=== PATIENT | female | born 1990 | race African-American/Black ===

== ENCOUNTER 2019-05-02 18:34 | Inpatient (IN) | payer MEDICARE, MEDICAID ==
[~2019-05-02] VITALS: Ht 157.5 cm; Wt 60.0 kg
[2019-05-02] MEDS ORDERED: LEVO75 PO (19:38)
[2019-05-02] MEDS ORDERED: METO50 PO (19:38)
[2019-05-02] MEDS ORDERED: BUME1TAB34 PO (19:38)
[2019-05-02] MEDS ORDERED: MYCO500T PO (19:38)
[2019-05-02] MEDS ORDERED: AMLO10TA7 PO (19:38)
[2019-05-02] MEDS ORDERED: CLON0.3T PO (19:38)
[2019-05-02] MEDS ORDERED: PANT40TA25 PO (19:38)
[2019-05-02] MEDS ORDERED: GABA-531 PO (19:38)
[2019-05-02] MEDS ORDERED: HYDR200T83 PO (19:38)
[2019-05-02] MEDS ORDERED: DiphenhydrAMINE HCL 50 MG/ML VIAL IVP STA (20:00)
[2019-05-02] MEDS ORDERED: METOCLOPRAMIDE HCL 5 MG/ML 2 ML VIAL IVP ONE (20:00)
[2019-05-02] MEDS ORDERED: KETOROLAC TROMETHAMINE 30 MG/ML VIAL IVP ONE (20:00)
[2019-05-02 20:54] LABS: ANION GAP 13 mmol/L (8-16); CALCIUM, TOTAL 9.2 mg/dL (8.8-10.5); CARBON DIOXIDE 25 mmol/L (22-29); CHLORIDE 97 mmol/L (98-107); CREATININE 11.65 mg/dL (0.60-1.30); GLOMERULAR FILTR. RATE CALC 4 mL/min (>60); GLUCOSE,RANDOM 85 mg/dL (70-110); POTASSIUM 4.3 mmol/L (3.5-5.1); SODIUM SERUM 135 mmol/L (136-145); UREA NITROGEN, BLOOD 45 mg/dL (7-18)
[2019-05-02 21:03] LABS: LACTIC ACID 1.1 mmol/L (0.4-2.0)
[2019-05-02 21:05] LABS: ALANINE AMINOTRANSFERASE 14 U/L (12-78); ALBUMIN 3.4 g/dL (3.4-5.0); ALKALINE PHOSPHATASE 263 U/L (46-116); ASPARTATE AMINOTRANSFERASE 12 U/L (15-37); BILIRUBIN,TOTAL 0.4 mg/dL (0.1-1.0); HCG,QUANTITATIVE < 1 mIU/mL (0-6); LIPASE 864 U/L (73-393); TOTAL PROTEIN, SERUM 7.5 g/dL (6.4-8.2)
[2019-05-02 21:09] LABS: BASOPHILS % (AUTO) 1.4 % (0.0-2.0); EOSINOPHILS % (AUTO) 1.4 % (1.0-6.0); HEMATOCRIT 29.9 % (36-46); HEMOGLOBIN 9.3 g/dL (12.0-16.0); LYMPHOCYTES # (AUTO) 1.8 K/uL (1.0-4.8); LYMPHOCYTES % (AUTO) 20.2 % (22.0-44.0); MEAN CORPUSCULAR HEMOGLOBIN 27.3 pg (26.0-34.0); MEAN CORPUSCULAR HGB CONC 31.1 G/dL (31.0-37.0); MEAN CORPUSCULAR VOLUME 88 fL (80-100); MONOCYTES # (AUTO) 1.1 K/uL (0.1-1.0); MONOCYTES % (AUTO) 11.9 % (2.0-9.0); NEUTROPHILS # (AUTO) 5.8 K/uL (1.8-7.7); NEUTROPHILS % (AUTO) 65.1 % (40.0-70.0); PLATELET COUNT (AUTO) 272 K/uL (150-450); RED BLOOD CELL COUNT(AUTO) 3.41 MIL/uL (4.00-5.20); RED CELL DISTRIBUTION WIDTH 18.6 % (11.5-14.5)
[2019-05-02] MEDS ORDERED: MORPHINE SULFATE 4 MG/ML SYRINGE IVP ONE (22:30)
[2019-05-02] MEDS ORDERED: BISACODYL 10 MG RECTAL RECTAL SUPPOSITORY PR PRN (22:30)
[2019-05-02] MEDS ORDERED: ZOLPIDEM TARTRATE 5 MG TABLET PO PRN (22:30)
[2019-05-02] MEDS ORDERED: ACETAMINOPHEN 325 MG TABLET PO PRN ×2 (22:30)
[2019-05-02] MEDS ORDERED: MAGNESIUM HYDROXIDE SUSPENSION 30 ML UDCUP PO PRN (22:30)
[2019-05-02] MEDS ORDERED: ONDANSETRON HCL 4 MG/2 ML VIAL IVP PRN (22:30)
[2019-05-02] MEDS ORDERED: 0.9% SODIUM CHLORIDE 10 ML SYRINGE IVP PRN (22:30)
[2019-05-03] VITALS (7 sets, daily range): BP systolic 116–154; BP diastolic 69–99
[2019-05-03] MEDS: HEPARIN SODIUM,PORCINE 5,000 UNITS/ML VIAL SQ SCH ×4 (00:30→23:19)
[2019-05-03] MEDS: MORPHINE SULFATE 2 MG/ML SYRINGE IVP PRN ×4 (04:40→23:19)
[2019-05-03] MEDS: HYDROCODONE/ACETAMINOPHEN 5-325 MG TABLET PO PRN (06:06)
[2019-05-03] MEDS: LEVOTHYROXINE SODIUM 75 MCG TABLET PO SCH (06:28)
[2019-05-03] MEDS: MYCOPHENOLATE MOFETIL 250 MG CAPSULE PO SCH ×2 (06:28→19:46)
[2019-05-03 06:36] LABS: BASOPHILS % (AUTO) 0.6 % (0.0-2.0); EOSINOPHILS % (AUTO) 2.4 % (1.0-6.0); HEMATOCRIT 26.1 % (36-46); HEMOGLOBIN 8.2 g/dL (12.0-16.0); LYMPHOCYTES # (AUTO) 2.2 K/uL (1.0-4.8); LYMPHOCYTES % (AUTO) 27.5 % (22.0-44.0); MEAN CORPUSCULAR HEMOGLOBIN 27.7 pg (26.0-34.0); MEAN CORPUSCULAR HGB CONC 31.3 G/dL (31.0-37.0); MEAN CORPUSCULAR VOLUME 89 fL (80-100); MONOCYTES % (AUTO) 12.9 % (2.0-9.0); NEUTROPHILS # (AUTO) 4.5 K/uL (1.8-7.7); NEUTROPHILS % (AUTO) 56.6 % (40.0-70.0); PLATELET COUNT (AUTO) 287 K/uL (150-450); RED BLOOD CELL COUNT(AUTO) 2.95 MIL/uL (4.00-5.20); RED CELL DISTRIBUTION WIDTH 18.9 % (11.5-14.5)
[2019-05-03 07:04] LABS: CREATININE 12.21 mg/dL (0.60-1.30); POTASSIUM 4.3 mmol/L (3.5-5.1)
[2019-05-03] MEDS: GABAPENTIN 300 MG CAPSULE PO SCH ×3 (08:07→19:46)
[2019-05-03] MEDS: HYDROXYCHLOROQUINE SULFATE 200 MG TABLET PO SCH ×2 (08:07→19:45)
[2019-05-03] MEDS: PANTOPRAZOLE SODIUM 40 MG DR TABLET PO SCH (08:08)
[2019-05-03] MEDS: AmLODIPine BESYLATE 10 MG TABLET PO SCH (08:08)
[2019-05-03] MEDS: METOPROLOL TARTRATE 50 MG TABLET PO SCH ×2 (08:08→23:19)
[2019-05-03] MEDS: BUMETANIDE 1 MG TABLET PO SCH ×3 (08:08→19:46)
[2019-05-03] MEDS: DOCUSATE SODIUM 100 MG CAPSULE PO SCH ×2 (08:09→19:45)
[2019-05-03] MEDS ORDERED: DiphenhydrAMINE HCL 50 MG/ML VIAL IM ONE (13:59)
[2019-05-03] MEDS ORDERED: LIDOCAINE/PF 1% 2 ML VIAL IM ONE (13:59)
[2019-05-03] MEDS ORDERED: SODIUM CHLORIDE 0.9% 1,000 ML ONE ×2 (15:33)
[2019-05-03] MEDS: ONDANSETRON HCL 4 MG/2 ML VIAL IVP PRN (23:26)
[2019-05-04] MEDS: HYDROCODONE/ACETAMINOPHEN 5-325 MG TABLET PO PRN ×2 (02:28→06:29)
[2019-05-04] MEDS: MORPHINE SULFATE 2 MG/ML SYRINGE IVP PRN ×3 (03:59→12:24)
[2019-05-04 05:28] VITALS: BP 127/71
[2019-05-04] MEDS: LEVOTHYROXINE SODIUM 75 MCG TABLET PO SCH (06:29)
[2019-05-04] MEDS: ONDANSETRON HCL 4 MG/2 ML VIAL IVP PRN (06:29)
[2019-05-04] MEDS: MYCOPHENOLATE MOFETIL 250 MG CAPSULE PO SCH (06:29)
[2019-05-04 07:11] LABS: BASOPHILS % (AUTO) 0.9 % (0.0-2.0); EOSINOPHILS % (AUTO) 5.6 % (1.0-6.0); HEMATOCRIT 25.7 % (36-46); HEMOGLOBIN 8.3 g/dL (12.0-16.0); LYMPHOCYTES # (AUTO) 1.8 K/uL (1.0-4.8); LYMPHOCYTES % (AUTO) 29.7 % (22.0-44.0); MEAN CORPUSCULAR HEMOGLOBIN 28.3 pg (26.0-34.0); MEAN CORPUSCULAR HGB CONC 32.1 G/dL (31.0-37.0); MEAN CORPUSCULAR VOLUME 88 fL (80-100); MONOCYTES # (AUTO) 0.6 K/uL (0.1-1.0); MONOCYTES % (AUTO) 10.7 % (2.0-9.0); NEUTROPHILS # (AUTO) 3.2 K/uL (1.8-7.7); NEUTROPHILS % (AUTO) 53.1 % (40.0-70.0); PLATELET COUNT (AUTO) 271 K/uL (150-450); RED BLOOD CELL COUNT(AUTO) 2.92 MIL/uL (4.00-5.20)
[2019-05-04 07:36] VITALS: BP 120/74
[2019-05-04 08:01] LABS: ALBUMIN 2.9 g/dL (3.4-5.0); BILIRUBIN,TOTAL 0.3 mg/dL (0.1-1.0); CALCIUM, TOTAL 9.3 mg/dL (8.8-10.5); CHOL/HDL RATIO 2.7 (3.9-5.7); CREATININE 7.16 mg/dL (0.60-1.30); PHOSPHORUS 5.6 mg/dL (2.5-4.9); POTASSIUM 4.5 mmol/L (3.5-5.1)
[2019-05-04 08:03] LABS: % IRON SATURATION 24.8 % (22-44)
[2019-05-04] MEDS: HYDROXYCHLOROQUINE SULFATE 200 MG TABLET PO SCH (08:09)
[2019-05-04] MEDS: AmLODIPine BESYLATE 10 MG TABLET PO SCH (08:10)
[2019-05-04] MEDS: METOPROLOL TARTRATE 50 MG TABLET PO SCH (08:10)
[2019-05-04] MEDS: DOCUSATE SODIUM 100 MG CAPSULE PO SCH (08:10)
[2019-05-04] MEDS: GABAPENTIN 300 MG CAPSULE PO SCH (08:10)
[2019-05-04] MEDS: BUMETANIDE 1 MG TABLET PO SCH (08:11)
[2019-05-04] MEDS: HEPARIN SODIUM,PORCINE 5,000 UNITS/ML VIAL SQ SCH (08:11)
[2019-05-04] MEDS: PANTOPRAZOLE SODIUM 40 MG DR TABLET PO SCH (08:14)
[2019-05-04] MEDS ORDERED: LIPA1CAP8 PO (11:11)
[2019-05-04] MEDS ORDERED: SEVE800T17 PO (11:11)
[2019-05-04] MEDS ORDERED: TRAM50TA4 PO (11:13)
[2019-05-04 11:20] VITALS: BP 112/64
[2019-05-04] MEDS ORDERED: SEVELAMER CARBONATE 800 MG TABLET PO SCH (12:00)
[2019-05-05] MEDS ORDERED: EPOETIN ALFA 10,000 UNITS/ML VIAL SQ SCH (09:00)
== END 2019-05-04 14:00 | disposition home or self-care (01) | DRG 438 ==
LOC: EMS 18:34 → 4E 23:35
PROVIDERS: ADMIT Internal Medicine; ATTEND Internal Medicine
PROC: 5A1D70Z Performance of Urinary Filtration, Intermittent, Less than 6 Hours Per Day (ICD-10-PCS; principal; 2019-05-03)
DX: K85.90 Acute pancreatitis without necrosis or infection, unspecified (principal); N18.6 End stage renal disease; I13.2 Hypertensive heart and chronic kidney disease with heart failure and with stage 5 chronic kidney disease, or end stage renal disease; F11.20 Opioid dependence, uncomplicated; D63.8 Anemia in other chronic diseases classified elsewhere; K21.9 Gastro-esophageal reflux disease without esophagitis; G89.4 Chronic pain syndrome; E11.22 Type 2 diabetes mellitus with diabetic chronic kidney disease; I50.9 Heart failure, unspecified; E11.42 Type 2 diabetes mellitus with diabetic polyneuropathy; E03.9 Hypothyroidism, unspecified; Z99.2 Dependence on renal dialysis; Z88.8 Allergy status to other drugs, medicaments and biological substances; Z88.2 Allergy status to sulfonamides; Z86.73 Personal history of transient ischemic attack (TIA), and cerebral infarction without residual deficits; Z79.899 Other long term (current) drug therapy; Z91.19 Patient's noncompliance with other medical treatment and regimen
CPT/HCPCS: 70450; 76705; 83540; 83550; 83605; 83735; 84100; 87081; 87340; G0378; J1200; J1644; J1885; J2270; J2405; J2765; J3490; J7030; J7517

== ENCOUNTER 2019-05-20 12:58 | Inpatient (IN) | payer MEDICARE, MEDICAID ==
[~2019-05-20] VITALS: Ht 157.5 cm; Wt 63.8 kg
[~2019-05-20 12:58] MED LIST: AMLO10TA7 PO; BUME1TAB34 PO; CLON0.3T PO; GABA-531 PO; HYDR200T83 PO; LEVO75 PO; LIPA1CAP8 PO; METO50 PO; MYCO500T PO; PANT40TA25 PO; SEVE800T17 PO; TRAM50TA4 PO
[2019-05-20 13:36] LABS: BASOPHILS % (AUTO) 0.4 % (0.0-2.0); EOSINOPHILS % (AUTO) 0.9 % (1.0-6.0); HEMATOCRIT 25.1 % (36-46); HEMOGLOBIN 7.9 g/dL (12.0-16.0); LYMPHOCYTES # (AUTO) 1.3 K/uL (1.0-4.8); LYMPHOCYTES % (AUTO) 9.2 % (22.0-44.0); MEAN CORPUSCULAR HEMOGLOBIN 27.8 pg (26.0-34.0); MEAN CORPUSCULAR HGB CONC 31.5 G/dL (31.0-37.0); MEAN CORPUSCULAR VOLUME 88 fL (80-100); MONOCYTES # (AUTO) 1.5 K/uL (0.1-1.0); MONOCYTES % (AUTO) 10.2 % (2.0-9.0); NEUTROPHILS # (AUTO) 11.5 K/uL (1.8-7.7); NEUTROPHILS % (AUTO) 79.3 % (40.0-70.0); RED BLOOD CELL COUNT(AUTO) 2.85 MIL/uL (4.00-5.20); RED CELL DISTRIBUTION WIDTH 17.5 % (11.5-14.5)
[2019-05-20 13:44] LABS: ANION GAP 13 mmol/L (8-16); CALCIUM, TOTAL 9.4 mg/dL (8.8-10.5); CARBON DIOXIDE 25 mmol/L (22-29); CHLORIDE 98 mmol/L (98-107); CREATININE 6.42 mg/dL (0.60-1.30); GLOMERULAR FILTR. RATE CALC 9 mL/min (>60); GLUCOSE,RANDOM 113 mg/dL (70-110); POTASSIUM 3.9 mmol/L (3.5-5.1); SODIUM SERUM 136 mmol/L (136-145); UREA NITROGEN, BLOOD 28 mg/dL (7-18)
[2019-05-20 13:56] LABS: ALANINE AMINOTRANSFERASE 14 U/L (12-78); ALBUMIN 2.9 g/dL (3.4-5.0); ALKALINE PHOSPHATASE 159 U/L (46-116); ASPARTATE AMINOTRANSFERASE 17 U/L (15-37); BILIRUBIN,TOTAL 0.4 mg/dL (0.1-1.0); HCG,QUANTITATIVE < 1 mIU/mL (0-6); LIPASE 291 U/L (73-393)
[2019-05-20 14:15] LABS: PLATELET COUNT (AUTO) 243 K/uL (150-450)
[2019-05-20] MEDS ORDERED: ONDANSETRON HCL 4 MG/2 ML VIAL IVP ONE (14:15)
[2019-05-20] MEDS ORDERED: SODIUM CHLORIDE 0.9% 1,000 ML IV ONE (14:15)
[2019-05-20] MEDS ORDERED: KETOROLAC TROMETHAMINE 30 MG/ML VIAL IVP ONE (14:30)
[2019-05-20] MEDS ORDERED: DIPHENOXYLATE/ATROP 2.5-0.025 MG TABLET PO ONE (15:30)
[2019-05-20] MEDS ORDERED: LORazepam 1 MG TABLET PO ONE (15:30)
[2019-05-20] MEDS ORDERED: 0.9% SODIUM CHLORIDE 10 ML SYRINGE IVP PRN ×2 (17:30→22:45)
[2019-05-20] MEDS ORDERED: LEVOFLOXACIN 500 MG/D5% WATER 100 ML IV ONE (17:30)
[2019-05-20] MEDS ORDERED: ACETAMINOPHEN 325 MG TABLET PO PRN ×2 (17:30→22:45)
[2019-05-20] MEDS ORDERED: ONDANSETRON HCL 4 MG/2 ML VIAL IVP PRN (17:30)
[2019-05-20 20:53] VITALS: BP 136/54
[2019-05-20] MEDS ORDERED: OxyCODONE HCL/ACETAMINOPHEN 5-325 MG TABLET PO PRN (22:45)
[2019-05-20] MEDS: DOCUSATE SODIUM 100 MG CAPSULE PO SCH (22:45)
[2019-05-20] MEDS ORDERED: MAGNESIUM HYDROXIDE SUSPENSION 30 ML UDCUP PO PRN (22:45)
[2019-05-20] MEDS: METOPROLOL TARTRATE 50 MG TABLET PO SCH (23:15)
[2019-05-20] MEDS: OxyCODONE HCL/ACETAMINOPHEN 5-325 MG TABLET PO PRN (23:16)
[2019-05-20 23:37] VITALS: BP 158/89
[2019-05-20] MEDS: HYDROXYCHLOROQUINE SULFATE 200 MG TABLET PO SCH (23:45)
[2019-05-21 04:32] VITALS: BP 163/77
[2019-05-21] MEDS: OxyCODONE HCL/ACETAMINOPHEN 5-325 MG TABLET PO PRN (05:33)
[2019-05-21] MEDS: LEVOTHYROXINE SODIUM 75 MCG TABLET PO SCH (05:33)
[2019-05-21 06:58] LABS: ALBUMIN 2.5 g/dL (3.4-5.0); BILIRUBIN,TOTAL 0.3 mg/dL (0.1-1.0); CALCIUM, TOTAL 8.2 mg/dL (8.8-10.5); CREATININE 7.12 mg/dL (0.60-1.30); POTASSIUM 3.9 mmol/L (3.5-5.1); TOTAL PROTEIN, SERUM 6.5 g/dL (6.4-8.2)
[2019-05-21 08:23] VITALS: BP 164/74
[2019-05-21 08:37] LABS: BASOPHILS % (AUTO) 0.5 % (0.0-2.0); EOSINOPHILS % (AUTO) 2.3 % (1.0-6.0); HEMATOCRIT 24.1 % (36-46); HEMOGLOBIN 7.6 g/dL (12.0-16.0); LYMPHOCYTES % (AUTO) 12.4 % (22.0-44.0); MEAN CORPUSCULAR HEMOGLOBIN 28.2 pg (26.0-34.0); MEAN CORPUSCULAR HGB CONC 31.7 G/dL (31.0-37.0); MEAN CORPUSCULAR VOLUME 89 fL (80-100); MONOCYTES # (AUTO) 0.9 K/uL (0.1-1.0); MONOCYTES % (AUTO) 11.9 % (2.0-9.0); NEUTROPHILS # (AUTO) 5.6 K/uL (1.8-7.7); NEUTROPHILS % (AUTO) 72.9 % (40.0-70.0); PLATELET COUNT (AUTO) 267 K/uL (150-450); RED BLOOD CELL COUNT(AUTO) 2.71 MIL/uL (4.00-5.20)
[2019-05-21] MEDS ORDERED: MYCOPHENOLATE MOFETIL 250 MG CAPSULE PO SCH (09:00)
[2019-05-21] MEDS ORDERED: BUMETANIDE 1 MG TABLET PO SCH (09:00)
[2019-05-21] MEDS: DOCUSATE SODIUM 100 MG CAPSULE PO SCH ×2 (09:00→20:44)
[2019-05-21] MEDS: SEVELAMER CARBONATE 800 MG TABLET PO SCH ×3 (09:15→18:00)
[2019-05-21] MEDS: HYDROXYCHLOROQUINE SULFATE 200 MG TABLET PO SCH ×2 (09:16→20:42)
[2019-05-21] MEDS: ONDANSETRON HCL 4 MG/2 ML VIAL IVP PRN ×3 (09:16→20:43)
[2019-05-21] MEDS: AmLODIPine BESYLATE 10 MG TABLET PO SCH (09:17)
[2019-05-21] MEDS: PANTOPRAZOLE SODIUM 40 MG DR TABLET PO SCH (09:17)
[2019-05-21] MEDS: MetroNIDAZOLE 500 MG TABLET PO SCH ×3 (09:17→20:41)
[2019-05-21] MEDS: GABAPENTIN 300 MG CAPSULE PO SCH ×2 (09:17→20:42)
[2019-05-21] MEDS: METOPROLOL TARTRATE 50 MG TABLET PO SCH ×3 (09:17→09:31)
[2019-05-21 11:44] VITALS: BP 132/73
[2019-05-21] MEDS ORDERED: VANCOMYCIN HCL 1 GM/D5% WATER 200 ML IV ONE (11:45)
[2019-05-21] MEDS ORDERED: VANCOMYCIN HCL 1 GM/D5% WATER 200 ML IV PRN (12:00)
[2019-05-21] MEDS ORDERED: LIPA1CAP8 PO (12:24)
[2019-05-21] MEDS: METOPROLOL TARTRATE 5 MG/5 ML VIAL IVP SCH ×2 (12:38→18:13)
[2019-05-21] MEDS ORDERED: SODIUM CHLORIDE 0.9% 250 ML IV ONE (12:51)
[2019-05-21] MEDS: IPRATROPIUM BROMIDE 0.5 MG/2.5 ML NEB SOLUTION NEB SCH ×2 (13:27→20:18)
[2019-05-21] MEDS: ALBUTEROL SULFATE 2.5 MG/0.5 ML NEB SOLUTION NEB SCH ×2 (13:27→20:18)
[2019-05-21 13:46] LABS: APPEARANCE,URINE TURBID (CLEAR); BILIRUBIN,URINE NEGATIVE (NEGATIVE); GLUCOSE, URINE (UA) 100 mg/dL (NEGATIVE); KETONES,URINE NEGATIVE (NEGATIVE); LEUKOCYTE ESTERASE ,URINE MODERATE (NEGATIVE); NITRATE,URINE NEGATIVE (NEGATIVE); OCCULT BLOOD,URINE TRACE (NEGATIVE); PH,URINE 8.5 (5.0-8.0); PROTEIN,URINE SEE CONFIRM (NEGATIVE); UROBILINOGEN,URINE 0.2 mg/dL (<=1.0)
[2019-05-21 14:08] LABS: SULFOSALICYLIC ACID,URINE 2+ (Negative)
[2019-05-21 14:10] LABS: BACTERIA,URINE Few /HPF (None Seen); SQUAMOUS EPITHELIAL CELL,UR Many /LPF (None Seen)
[2019-05-21 14:25] LABS: C.DIFF GDH ANTIGEN, Stool Negative (Negative); C.DIFF TOXINS A&B, Stool Negative (Negative)
[2019-05-21 16:05] VITALS: BP 152/98
[2019-05-21] MEDS ORDERED: PROMETHAZINE HCL 25 MG RECTAL SUPPOSITORY PR PRN (16:15)
[2019-05-21] MEDS: CloNIDine HCL 0.2 MG TABLET PO SCH ×2 (16:43→20:42)
[2019-05-21 17:25] LABS: INFLUENZA TYPE A NEGATIVE FOR TYPE A (NEGATIVE); INFLUENZA TYPE B NEGATIVE FOR TYPE B (NEGATIVE)
[2019-05-21] MEDS: SOD FERRIC GLUC COMPLX/SUCROSE 125 MG in SODIUM CHLORIDE 0.9% 100 ML IV SCH (17:44)
[2019-05-21] MEDS ORDERED: AMYLASE PO SCH (18:00)
[2019-05-21] MEDS ORDERED: LIPASE PO SCH (18:00)
[2019-05-21] MEDS ORDERED: [UNRECOGNIZED DRUG - OTHER] PO SCH (18:00)
[2019-05-21] MEDS ORDERED: PROTEASE PO SCH (18:00)
[2019-05-21] MEDS: MORPHINE SULFATE 2 MG/ML SYRINGE IVP PRN (20:43)
[2019-05-21 20:47] VITALS: BP 135/91
[2019-05-22] MEDS: METOPROLOL TARTRATE 5 MG/5 ML VIAL IVP SCH ×5 (00:33→23:43)
[2019-05-22 01:17] VITALS: BP 157/102
[2019-05-22] MEDS: IPRATROPIUM BROMIDE 0.5 MG/2.5 ML NEB SOLUTION NEB SCH ×4 (02:00→20:00)
[2019-05-22] MEDS: ALBUTEROL SULFATE 2.5 MG/0.5 ML NEB SOLUTION NEB SCH ×4 (02:00→20:00)
[2019-05-22] MEDS: ONDANSETRON HCL 4 MG/2 ML VIAL IVP PRN ×2 (03:08→21:51)
[2019-05-22] MEDS: MORPHINE SULFATE 2 MG/ML SYRINGE IVP PRN ×3 (03:09→21:51)
[2019-05-22 05:34] VITALS: BP 156/90
[2019-05-22] MEDS: LEVOTHYROXINE SODIUM 75 MCG TABLET PO SCH (06:54)
[2019-05-22] MEDS: HYDROXYCHLOROQUINE SULFATE 200 MG TABLET PO SCH ×2 (08:42→21:50)
[2019-05-22] MEDS: SEVELAMER CARBONATE 800 MG TABLET PO SCH ×3 (08:42→18:00)
[2019-05-22] MEDS: MetroNIDAZOLE 500 MG TABLET PO SCH ×3 (08:43→21:51)
[2019-05-22] MEDS: PANTOPRAZOLE SODIUM 40 MG DR TABLET PO SCH (08:43)
[2019-05-22] MEDS: DOCUSATE SODIUM 100 MG CAPSULE PO SCH ×2 (08:43→21:00)
[2019-05-22] MEDS: CloNIDine HCL 0.2 MG TABLET PO SCH ×3 (08:43→21:51)
[2019-05-22] MEDS: AmLODIPine BESYLATE 10 MG TABLET PO SCH (08:43)
[2019-05-22] MEDS: EPOETIN ALFA 10,000 UNITS/ML VIAL SQ SCH (08:44)
[2019-05-22 09:47] LABS: INR 1.3 (0.9-1.1); PROTHROMBIN TIME 12.8 SEC (9.4-11.6)
[2019-05-22 09:58] LABS: CREATININE 9.02 mg/dL (0.60-1.30); POTASSIUM 4.4 mmol/L (3.5-5.1); VANCOMYCIN,RANDOM 23.8 mcg/mL (25.0-50.0)
[2019-05-22 11:37] VITALS: BP 150/93
[2019-05-22] MEDS ORDERED: METOPROLOL TARTRATE 5 MG/5 ML VIAL ONE (13:45)
[2019-05-22] MEDS ORDERED: NITROGLYCERIN 400 MCG/SUBLINGUAL SPRAY 4.9 GM BOTTLE SL ONE (13:45)
[2019-05-22] MEDS: ALPRAZolam 0.5 MG TABLET PO SCH ×2 (15:21→21:51)
[2019-05-22] MEDS: SOD FERRIC GLUC COMPLX/SUCROSE 125 MG in SODIUM CHLORIDE 0.9% 100 ML IV SCH (15:21)
[2019-05-22 15:45] VITALS: BP 142/90
[2019-05-22] MEDS ORDERED: SODIUM CHLORIDE 0.9% 1,000 ML ONE (16:04)
[2019-05-22 16:25] LABS: SPECIMENTYPE,BODY FLUID PLEURAL
[2019-05-22] MEDS ORDERED: DiphenhydrAMINE HCL 50 MG/ML VIAL IM ONE (17:25)
[2019-05-22] MEDS ORDERED: DiphenhydrAMINE HCL 50 MG/ML VIAL IVP PRN (17:45)
[2019-05-22] MEDS ORDERED: MANNITOL 25%-12.5 GM/50 ML VIAL IVP PRN (17:45)
[2019-05-22 17:58] LABS: APPEARANCE,SPUN,BODY FLUID CLEAR (CLEAR); APPEARANCE,UNSPUN,BODY FLUID CLOUDY (CLEAR)
[2019-05-22 18:00] LABS: COLOR,BODY FLUID AMBER (LT YELLOW)
[2019-05-22] MEDS ORDERED: LEVOFLOXACIN 500 MG/D5% WATER 100 ML IV SCH (18:00)
[2019-05-22 18:01] LABS: LYMPHOCYTES,BODY FLUID 19 %; MONOCYTES,BODY FLUID 5 %; NEUTROPHILS,BODY FLUID 66 %; TOTAL VOLUME,BODY FLUID 1050 mL; WBC, BODY FLUID 350 /cu. mm.
[2019-05-22 18:02] LABS: BASOPHILS,BODY FLUID 0 %; EOSINOPHILS,BF (ANAL) 0 %; PH, BODY FLUID 8
[2019-05-22 18:04] LABS: OTHER CELLS,BODY FLUID MESOTHELIALS
[2019-05-22 20:50] VITALS: BP 158/78
[2019-05-22] MEDS: GABAPENTIN 300 MG CAPSULE PO SCH (21:51)
[2019-05-22 23:34] VITALS: BP 135/76
[2019-05-23] MEDS: ALBUTEROL SULFATE 2.5 MG/0.5 ML NEB SOLUTION NEB SCH ×4 (02:00→20:27)
[2019-05-23] MEDS: IPRATROPIUM BROMIDE 0.5 MG/2.5 ML NEB SOLUTION NEB SCH ×4 (02:00→20:27)
[2019-05-23] MEDS ORDERED: VANCOMYCIN HCL 500 MG in DEXTROSE 5%-WATER 100 ML IV ONE (05:00)
[2019-05-23 05:46] VITALS: BP 151/89
[2019-05-23] MEDS: METOPROLOL TARTRATE 5 MG/5 ML VIAL IVP SCH ×3 (06:05→18:33)
[2019-05-23] MEDS: ONDANSETRON HCL 4 MG/2 ML VIAL IVP PRN ×3 (06:05→18:33)
[2019-05-23] MEDS: MORPHINE SULFATE 2 MG/ML SYRINGE IVP PRN ×3 (06:06→20:44)
[2019-05-23] MEDS: LEVOTHYROXINE SODIUM 75 MCG TABLET PO SCH (06:08)
[2019-05-23 07:39] VITALS: BP 155/82
[2019-05-23] MEDS: SEVELAMER CARBONATE 800 MG TABLET PO SCH ×3 (08:00→18:33)
[2019-05-23] MEDS: MetroNIDAZOLE 500 MG TABLET PO SCH ×3 (08:56→20:42)
[2019-05-23] MEDS: HYDROXYCHLOROQUINE SULFATE 200 MG TABLET PO SCH ×2 (08:56→20:43)
[2019-05-23] MEDS: PANTOPRAZOLE SODIUM 40 MG DR TABLET PO SCH (08:56)
[2019-05-23] MEDS: DOCUSATE SODIUM 100 MG CAPSULE PO SCH ×2 (08:56→20:42)
[2019-05-23] MEDS: ALPRAZolam 0.5 MG TABLET PO SCH ×2 (08:56→20:42)
[2019-05-23] MEDS: CloNIDine HCL 0.2 MG TABLET PO SCH ×3 (08:56→20:42)
[2019-05-23] MEDS: AmLODIPine BESYLATE 10 MG TABLET PO SCH (08:56)
[2019-05-23 11:33] VITALS: BP 143/74
[2019-05-23] MEDS ORDERED: SODIUM CHLORIDE 0.9% 100 ML ONE (15:17)
[2019-05-23] MEDS: SOD FERRIC GLUC COMPLX/SUCROSE 125 MG in SODIUM CHLORIDE 0.9% 100 ML IV SCH (15:27)
[2019-05-23] MEDS: OxyCODONE HCL/ACETAMINOPHEN 5-325 MG TABLET PO PRN (15:28)
[2019-05-23 16:17] VITALS: BP 141/71
[2019-05-23 19:40] VITALS: BP 117/63
[2019-05-23] MEDS: GABAPENTIN 300 MG CAPSULE PO SCH (20:43)
[2019-05-23 23:34] VITALS: BP 133/58
[2019-05-24] MEDS: METOPROLOL TARTRATE 5 MG/5 ML VIAL IVP SCH ×3 (00:46→12:00)
[2019-05-24] MEDS: OxyCODONE HCL/ACETAMINOPHEN 5-325 MG TABLET PO PRN ×2 (00:52→08:50)
[2019-05-24] MEDS: ALBUTEROL SULFATE 2.5 MG/0.5 ML NEB SOLUTION NEB SCH ×2 (02:00→09:43)
[2019-05-24] MEDS: IPRATROPIUM BROMIDE 0.5 MG/2.5 ML NEB SOLUTION NEB SCH ×2 (02:00→09:43)
[2019-05-24 05:55] VITALS: BP 142/86
[2019-05-24] MEDS: MORPHINE SULFATE 2 MG/ML SYRINGE IVP PRN ×2 (06:06→12:37)
[2019-05-24] MEDS: LEVOTHYROXINE SODIUM 75 MCG TABLET PO SCH (06:06)
[2019-05-24 06:46] LABS: BASOPHILS % (AUTO) 0.7 % (0.0-2.0); EOSINOPHILS % (AUTO) 1.9 % (1.0-6.0); HEMATOCRIT 22.7 % (36-46); HEMOGLOBIN 7.1 g/dL (12.0-16.0); LYMPHOCYTES # (AUTO) 1.2 K/uL (1.0-4.8); LYMPHOCYTES % (AUTO) 25.3 % (22.0-44.0); MEAN CORPUSCULAR HEMOGLOBIN 28.4 pg (26.0-34.0); MEAN CORPUSCULAR HGB CONC 31.4 G/dL (31.0-37.0); MEAN CORPUSCULAR VOLUME 90 fL (80-100); MONOCYTES # (AUTO) 0.9 K/uL (0.1-1.0); MONOCYTES % (AUTO) 18.8 % (2.0-9.0); NEUTROPHILS # (AUTO) 2.5 K/uL (1.8-7.7); NEUTROPHILS % (AUTO) 53.3 % (40.0-70.0); PLATELET COUNT (AUTO) 206 K/uL (150-450); RED BLOOD CELL COUNT(AUTO) 2.51 MIL/uL (4.00-5.20); RED CELL DISTRIBUTION WIDTH 17.4 % (11.5-14.5)
[2019-05-24 07:02] LABS: % IRON SATURATION 65.5 % (22-44); CALCIUM, TOTAL 8.3 mg/dL (8.8-10.5); CREATININE 6.62 mg/dL (0.60-1.30); MAGNESIUM 1.8 mg/dL (1.80-2.40); PHOSPHORUS 4.3 mg/dL (2.5-4.9); POTASSIUM 3.5 mmol/L (3.5-5.1); VANCOMYCIN,RANDOM 20.1 mcg/mL (25.0-50.0)
[2019-05-24 07:46] VITALS: BP 137/74
[2019-05-24] MEDS: MetroNIDAZOLE 500 MG TABLET PO SCH (08:46)
[2019-05-24] MEDS: AmLODIPine BESYLATE 10 MG TABLET PO SCH (08:46)
[2019-05-24] MEDS: SEVELAMER CARBONATE 800 MG TABLET PO SCH ×2 (08:46→12:37)
[2019-05-24] MEDS: PANTOPRAZOLE SODIUM 40 MG DR TABLET PO SCH (08:47)
[2019-05-24] MEDS: CloNIDine HCL 0.2 MG TABLET PO SCH (08:47)
[2019-05-24] MEDS: ALPRAZolam 0.5 MG TABLET PO SCH (08:49)
[2019-05-24] MEDS: HYDROXYCHLOROQUINE SULFATE 200 MG TABLET PO SCH (08:49)
[2019-05-24] MEDS: EPOETIN ALFA 10,000 UNITS/ML VIAL SQ SCH (08:59)
[2019-05-24] MEDS: DOCUSATE SODIUM 100 MG CAPSULE PO SCH (09:00)
[2019-05-24] MEDS ORDERED: LEVO-72 PO (10:36)
[2019-05-24 11:22] VITALS: BP 122/77
[2019-05-25 20:06] LABS: CYTOMEGALOVIRUS PCR Negative (Negative)
== END 2019-05-24 13:15 | disposition home or self-care (01) | DRG 871 ==
LOC: EMS 13:00 → 5N 18:06
PROVIDERS: ADMIT Internal Medicine; ATTEND Internal Medicine
PROC: 5A1D70Z Performance of Urinary Filtration, Intermittent, Less than 6 Hours Per Day (ICD-10-PCS; principal; 2019-05-22)
PROC: 0W993ZZ Drainage of Right Pleural Cavity, Percutaneous Approach (ICD-10-PCS; 2019-05-22)
DX: A41.9 Sepsis, unspecified organism (principal); J18.9 Pneumonia, unspecified organism; N18.6 End stage renal disease; E43 Unspecified severe protein-calorie malnutrition; J90 Pleural effusion, not elsewhere classified; K86.1 Other chronic pancreatitis; I12.0 Hypertensive chronic kidney disease with stage 5 chronic kidney disease or end stage renal disease; D68.62 Lupus anticoagulant syndrome; M32.13 Lung involvement in systemic lupus erythematosus; N25.0 Renal osteodystrophy; D63.1 Anemia in chronic kidney disease; E16.2 Hypoglycemia, unspecified; G62.9 Polyneuropathy, unspecified; E03.9 Hypothyroidism, unspecified; Z86.73 Personal history of transient ischemic attack (TIA), and cerebral infarction without residual deficits; Z99.2 Dependence on renal dialysis; Z88.1 Allergy status to other antibiotic agents; Z88.8 Allergy status to other drugs, medicaments and biological substances; Z68.25 Body mass index [BMI] 25.0-25.9, adult; Z83.2 Family history of diseases of the blood and blood-forming organs and certain disorders involving the immune mechanism; Z91.19 Patient's noncompliance with other medical treatment and regimen
CPT/HCPCS: 32555; 71250; 74176; 76942; 82465; 82945; 83540; 83550; 83605; 83615; 83735; 83986; 84100; 84157; 86645; 87015; 87040; 87070; 87081; 87086; 87101; 87205; 87206; 87324; 87449; 87497; 87804; 88108; 89051; 93005; 94640; J0885; J1200; J1885; J1956; J2270; J2405; J2916; J3370; J3490; J7030; J7050; J7060; J7517

== ENCOUNTER 2019-06-23 00:38 | Inpatient (IN) | payer MEDICARE, MEDICAID ==
[2019-06-23] VITALS (9 sets, daily range): BP systolic 139–189; BP diastolic 89–108
[~2019-06-23] VITALS: Ht 157.5 cm; Wt 67.1 kg
[~2019-06-23 00:38] MED LIST changes: -BUME1TAB34 PO; +LEVO-72 PO; -METO50 PO; -MYCO500T PO
[2019-06-23] MEDS ORDERED: DiphenhydrAMINE HCL 50 MG/ML VIAL IVP STA (01:28)
[2019-06-23] MEDS ORDERED: MethylPREDNISolone SOD SUCC 125 MG/2 ML VIAL IVP ONE (01:30)
[2019-06-23] MEDS ORDERED: MORPHINE SULFATE 4 MG/ML SYRINGE IVP ONE (01:30)
[2019-06-23] MEDS ORDERED: FAMOTIDINE 10 MG/ML 2 ML VIAL IVP ONE (01:30)
[2019-06-23 03:02] LABS: BASOPHILS % (AUTO) 0.9 % (0.0-2.0); EOSINOPHILS % (AUTO) 3.4 % (1.0-6.0); LYMPHOCYTES % (AUTO) 13.9 % (22.0-44.0); MEAN CORPUSCULAR HEMOGLOBIN 29.8 pg (26.0-34.0); MEAN CORPUSCULAR HGB CONC 33.7 G/dL (31.0-37.0); MEAN CORPUSCULAR VOLUME 88 fL (80-100); MONOCYTES # (AUTO) 0.5 K/uL (0.1-1.0); MONOCYTES % (AUTO) 7.9 % (2.0-9.0); NEUTROPHILS # (AUTO) 5.1 K/uL (1.8-7.7); NEUTROPHILS % (AUTO) 73.9 % (40.0-70.0); PLATELET COUNT (AUTO) 232 K/uL (150-450); RED BLOOD CELL COUNT(AUTO) 2.14 MIL/uL (4.00-5.20); RED CELL DISTRIBUTION WIDTH 18.9 % (11.5-14.5)
[2019-06-23 03:11] LABS: ANION GAP 14 mmol/L (8-16); CALCIUM, TOTAL 8.3 mg/dL (8.8-10.5); CARBON DIOXIDE 24 mmol/L (22-29); CHLORIDE 98 mmol/L (98-107); CREATININE 13.12 mg/dL (0.60-1.30); GLOMERULAR FILTR. RATE CALC 4 mL/min (>60); GLUCOSE,RANDOM 87 mg/dL (70-110); POTASSIUM 5.5 mmol/L (3.5-5.1); SODIUM SERUM 136 mmol/L (136-145); UREA NITROGEN, BLOOD 77 mg/dL (7-18)
[2019-06-23 03:14] LABS: INR 1.1 (0.9-1.1); PROTHROMBIN TIME 11.7 SEC (9.4-11.6)
[2019-06-23 03:16] LABS: HEMATOCRIT 18.9 % (36-46)
[2019-06-23] MEDS ORDERED: SODIUM CHLORIDE 0.9% 100 ML ONE (03:17)
[2019-06-23] MEDS ORDERED: IOVERSOL 350 MG/ML 100 ML VIAL ONE (03:17)
[2019-06-23 03:18] LABS: HEMOGLOBIN 6.4 g/dL (12.0-16.0)
[2019-06-23 03:19] LABS: B-TYPE NATRIURETIC PEPTIDE 2750 pg/mL (0-100)
[2019-06-23 03:24] LABS: ALANINE AMINOTRANSFERASE 12 U/L (12-78); ALBUMIN 2.8 g/dL (3.4-5.0); ALKALINE PHOSPHATASE 98 U/L (46-116); ASPARTATE AMINOTRANSFERASE 10 U/L (15-37); BILIRUBIN,TOTAL 0.3 mg/dL (0.1-1.0); CREATINE KINASE, TOTAL ONLY 59 U/L (26-192); HCG,QUANTITATIVE < 1 mIU/mL (0-6); TOTAL PROTEIN, SERUM 6.5 g/dL (6.4-8.2)
[2019-06-23] MEDS ORDERED: FUROSEMIDE 40 MG/4 ML VIAL IVP ONE (03:45)
[2019-06-23] MEDS ORDERED: HYDROmorphone 2 MG/ML SYRINGE IVP ONE (04:00)
[2019-06-23 05:12] LABS: D-DIMER 1.83 mg/L FEU (0.00-0.50)
[2019-06-23] MEDS ORDERED: ACETAMINOPHEN 325 MG TABLET PO PRN (05:15)
[2019-06-23] MEDS ORDERED: ONDANSETRON HCL 4 MG/2 ML VIAL IVP PRN ×2 (05:15→08:00)
[2019-06-23] MEDS: AMYLASE/LIPASE/PROTEASE 30/6/19 MU DR CAPSULE PO SCH ×2 (08:00→11:17)
[2019-06-23] MEDS ORDERED: 0.9% SODIUM CHLORIDE 10 ML SYRINGE IVP PRN (08:00)
[2019-06-23] MEDS ORDERED: ZOLPIDEM TARTRATE 5 MG TABLET PO PRN (08:00)
[2019-06-23] MEDS: PANTOPRAZOLE SODIUM 40 MG DR TABLET PO SCH (09:20)
[2019-06-23] MEDS: SEVELAMER CARBONATE 800 MG TABLET PO SCH ×2 (09:20→12:27)
[2019-06-23] MEDS: GABAPENTIN 300 MG CAPSULE PO SCH ×3 (09:20→20:59)
[2019-06-23] MEDS: HYDROXYCHLOROQUINE SULFATE 200 MG TABLET PO SCH ×2 (09:21→20:59)
[2019-06-23] MEDS: AmLODIPine BESYLATE 10 MG TABLET PO SCH (09:23)
[2019-06-23] MEDS: LEVOTHYROXINE SODIUM 75 MCG TABLET PO SCH (09:24)
[2019-06-23] MEDS: ENOXAPARIN SODIUM 30 MG/0.3 ML PF SYRINGE SQ SCH (09:24)
[2019-06-23] MEDS: TraMADol HCL 50 MG TABLET PO PRN ×2 (09:31→20:58)
[2019-06-23] MEDS ORDERED: SODIUM CHLORIDE 0.9% 1,000 ML ONE (11:51)
[2019-06-23] MEDS: VITAMIN B COMP/VIT C/FOLIC ACID CAPSULE PO SCH (12:21)
[2019-06-23] MEDS ORDERED: INFLUENZA VIRUS VACCINE QVS 2019-20 (3YR+)/PF 60 MCG/0.5 ML SYRINGE IM ONE (13:15)
[2019-06-23] MEDS ORDERED: PNEUMOCOCCAL VACCINE POLYVALENT 0.5 ML VIAL [PPSV23] IM ONE (13:15)
[2019-06-23] MEDS: MORPHINE SULFATE 2 MG/ML SYRINGE IVP PRN (23:11)
[2019-06-24 00:21] LABS: HEMATOCRIT 22.4 % (36-46); HEMOGLOBIN 7.2 g/dL (12.0-16.0)
[2019-06-24] MEDS: MORPHINE SULFATE 2 MG/ML SYRINGE IVP PRN ×2 (03:40→08:46)
[2019-06-24 04:03] VITALS: BP 148/91
[2019-06-24] MEDS: LEVOTHYROXINE SODIUM 75 MCG TABLET PO SCH (06:14)
[2019-06-24 07:29] VITALS: BP 156/93
[2019-06-24] MEDS: SEVELAMER CARBONATE 800 MG TABLET PO SCH ×4 (08:00→18:28)
[2019-06-24] MEDS: AMYLASE/LIPASE/PROTEASE 30/6/19 MU DR CAPSULE PO SCH ×4 (08:00→18:28)
[2019-06-24] MEDS: GABAPENTIN 300 MG CAPSULE PO SCH ×3 (08:47→21:21)
[2019-06-24] MEDS: ENOXAPARIN SODIUM 30 MG/0.3 ML PF SYRINGE SQ SCH ×2 (08:47→09:00)
[2019-06-24] MEDS: AmLODIPine BESYLATE 10 MG TABLET PO SCH (08:47)
[2019-06-24] MEDS: VITAMIN B COMP/VIT C/FOLIC ACID CAPSULE PO SCH (08:48)
[2019-06-24] MEDS: PANTOPRAZOLE SODIUM 40 MG DR TABLET PO SCH (08:48)
[2019-06-24] MEDS: HYDROXYCHLOROQUINE SULFATE 200 MG TABLET PO SCH ×2 (08:48→21:21)
[2019-06-24] MEDS ORDERED: EPOETIN ALFA 10,000 UNITS/ML VIAL SQ SCH (09:00)
[2019-06-24 11:00] VITALS: BP 126/78
[2019-06-24] MEDS: HYDROmorphone HCL 2 MG TABLET PO PRN ×2 (11:55→18:27)
[2019-06-24 13:32] LABS: BASOPHILS % (AUTO) 0.3 % (0.0-2.0); EOSINOPHILS % (AUTO) 0.4 % (1.0-6.0); HEMATOCRIT 23.5 % (36-46); HEMOGLOBIN 7.5 g/dL (12.0-16.0); LYMPHOCYTES # (AUTO) 1.5 K/uL (1.0-4.8); MEAN CORPUSCULAR HEMOGLOBIN 28.4 pg (26.0-34.0); MEAN CORPUSCULAR HGB CONC 32.1 G/dL (31.0-37.0); MEAN CORPUSCULAR VOLUME 88 fL (80-100); MONOCYTES # (AUTO) 0.6 K/uL (0.1-1.0); MONOCYTES % (AUTO) 7.4 % (2.0-9.0); NEUTROPHILS # (AUTO) 5.7 K/uL (1.8-7.7); NEUTROPHILS % (AUTO) 72.9 % (40.0-70.0); PLATELET COUNT (AUTO) 281 K/uL (150-450); RED BLOOD CELL COUNT(AUTO) 2.66 MIL/uL (4.00-5.20)
[2019-06-24 13:44] LABS: % IRON SATURATION 31.6 % (22-44)
[2019-06-24 14:11] LABS: ERYTHROCYTE SEDIMENTATION RATE 14 MM/HR (0-20)
[2019-06-24 14:21] LABS: C-REACTIVE PROTEIN QUANT 5.69 mg/dL (0.00-0.30); CALCIUM, TOTAL 8.5 mg/dL (8.8-10.5); CREATININE 7.78 mg/dL (0.60-1.30); MAGNESIUM 2.1 mg/dL (1.80-2.40); PHOSPHORUS 5.9 mg/dL (2.5-4.9); POTASSIUM 4.9 mmol/L (3.5-5.1)
[2019-06-24 15:40] VITALS: BP 128/77
[2019-06-24 22:28] VITALS: BP 160/100
[2019-06-25] MEDS: HYDROmorphone HCL 2 MG TABLET PO PRN ×3 (00:53→13:47)
[2019-06-25 01:09] VITALS: BP 151/97
[2019-06-25 05:18] VITALS: BP 134/93
[2019-06-25] MEDS: LEVOTHYROXINE SODIUM 75 MCG TABLET PO SCH (06:40)
[2019-06-25 07:28] VITALS: BP 153/94
[2019-06-25] MEDS: AMYLASE/LIPASE/PROTEASE 30/6/19 MU DR CAPSULE PO SCH ×2 (09:22→12:32)
[2019-06-25] MEDS: HYDROXYCHLOROQUINE SULFATE 200 MG TABLET PO SCH (09:23)
[2019-06-25] MEDS: SEVELAMER CARBONATE 800 MG TABLET PO SCH ×2 (09:24→12:32)
[2019-06-25] MEDS: PANTOPRAZOLE SODIUM 40 MG DR TABLET PO SCH (09:24)
[2019-06-25] MEDS: VITAMIN B COMP/VIT C/FOLIC ACID CAPSULE PO SCH (09:24)
[2019-06-25] MEDS: ENOXAPARIN SODIUM 30 MG/0.3 ML PF SYRINGE SQ SCH (09:24)
[2019-06-25] MEDS: AmLODIPine BESYLATE 10 MG TABLET PO SCH (09:24)
[2019-06-25] MEDS: GABAPENTIN 300 MG CAPSULE PO SCH (09:24)
[2019-06-25 10:46] VITALS: BP 146/97
[2019-06-25 13:34] LABS: ABG A-A DIFF O2 54.3 mmHg (10-20.0); ABG BASE EXCESS 2.2 mmol/L (-2.0-3.0); ABG HCO3 26.4 mmol/L (22.0-26.0); ABG METHEMOGLOBIN 0.3 % (0.0-1.5); ABG OXYGEN CONTENT 9.8 mL/dL (15.0-23.0); ABG OXYGEN SATURATION 90.7 % (95.0-98.0); ABG OXYHEMOGLOBIN 89.5 % (94.0-100.0); ABG PCO2 32 mmHg (35-45); ABG PH 7.519 (7.350-7.450); PO2, ARTERIAL BG 57.7 mmHg (80.0-100.0); SOURCE, BLOOD GAS ARTERIAL; TEMPERATURE, FAHRENHEIT, BG 98.6 FAHREN (96.0-98.6)
[2019-06-25 13:35] LABS: ABG TOTAL HEMOGLOBIN 7.7 G/dL (12.0-18.0); SITE, BLOOD GAS RT RADIAL
[2019-06-25 13:36] LABS: O2 DEVICE,BLOOD GAS ROOM AIR (ROOM AIR)
[2019-06-25] MEDS ORDERED: LIDOCAINE/PF 1% 2 ML VIAL INJ ONE (16:44)
[2019-06-25] MEDS ORDERED: DiphenhydrAMINE HCL 50 MG/ML VIAL IVP ONE (16:44)
[2019-06-26 06:22] LABS: DRVVT CORRECTED MIX-LUPUS 46.8 sec (0.0-47.0)
== END 2019-06-25 16:45 | disposition home or self-care (01) | DRG 545 ==
LOC: EMS 00:38 → 5N 11:35
PROVIDERS: ADMIT Internal Medicine; ATTEND Internal Medicine
PROC: 30233N1 Transfusion of Nonautologous Red Blood Cells into Peripheral Vein, Percutaneous Approach (ICD-10-PCS; principal; 2019-06-23)
PROC: 5A1D70Z Performance of Urinary Filtration, Intermittent, Less than 6 Hours Per Day (ICD-10-PCS; 2019-06-23)
DX: M32.9 Systemic lupus erythematosus, unspecified (principal); N18.6 End stage renal disease; J90 Pleural effusion, not elsewhere classified; D68.62 Lupus anticoagulant syndrome; I12.0 Hypertensive chronic kidney disease with stage 5 chronic kidney disease or end stage renal disease; K86.1 Other chronic pancreatitis; D63.1 Anemia in chronic kidney disease; E03.9 Hypothyroidism, unspecified; E87.5 Hyperkalemia; E16.2 Hypoglycemia, unspecified; G62.9 Polyneuropathy, unspecified; Z86.73 Personal history of transient ischemic attack (TIA), and cerebral infarction without residual deficits; Z91.19 Patient's noncompliance with other medical treatment and regimen; Z99.2 Dependence on renal dialysis; Z79.899 Other long term (current) drug therapy; Z03.818 Encounter for observation for suspected exposure to other biological agents ruled out
CPT/HCPCS: 36600; 71275; 82728; 82805; 83010; 83540; 83550; 83615; 83735; 84100; 85014; 85018; 85379; 85384; 85613; 85651; 85732; 86140; 86850; 86900; 86901; 86923; 87081; 87340; 87635; 93005; J0885; J1170; J1200; J1650; J1940; J2270; J2405; J2930; J3490; J7030; J7050; P9016

== ENCOUNTER 2019-07-22 23:34 | Inpatient (IN) | payer MEDICARE, MEDICAID ==
[~2019-07-22] VITALS: Ht 165.1 cm; Wt 68.5 kg
[~2019-07-22 23:34] MED LIST changes: +GABA-1181 PO; -GABA-531 PO; -LEVO-72 PO; +PANT-31 PO; -PANT40TA25 PO
[2019-07-22 23:59] LABS: GLUCOSE,POINT OF CARE 86 MG/DL (70-110)
[2019-07-23] MEDS ORDERED: FUROSEMIDE 20 MG TABLET PO ONE
[2019-07-23] MEDS ORDERED: TraMADol HCL 50 MG TABLET PO ONE
[2019-07-23] MEDS ORDERED: METOPROLOL SUCCINATE 25 MG ER TABLET PO ONE
[2019-07-23 01:57] LABS: BASOPHILS % (AUTO) 0.6 % (0.0-2.0); EOSINOPHILS % (AUTO) 0.6 % (1.0-6.0); HEMATOCRIT 23.2 % (36-46); HEMOGLOBIN 7.6 g/dL (12.0-16.0); LYMPHOCYTES # (AUTO) 0.5 K/uL (1.0-4.8); LYMPHOCYTES % (AUTO) 5.6 % (22.0-44.0); MEAN CORPUSCULAR HEMOGLOBIN 29.5 pg (26.0-34.0); MEAN CORPUSCULAR HGB CONC 32.9 G/dL (31.0-37.0); MEAN CORPUSCULAR VOLUME 90 fL (80-100); MONOCYTES # (AUTO) 0.4 K/uL (0.1-1.0); MONOCYTES % (AUTO) 4.1 % (2.0-9.0); NEUTROPHILS # (AUTO) 8.1 K/uL (1.8-7.7); PLATELET COUNT (AUTO) 225 K/uL (150-450); RED BLOOD CELL COUNT(AUTO) 2.58 MIL/uL (4.00-5.20); RED CELL DISTRIBUTION WIDTH 18.2 % (11.5-14.5)
[2019-07-23 02:09] LABS: NEUTROPHILS % (AUTO) 89.1 % (40.0-70.0)
[2019-07-23] MEDS ORDERED: ONDANSETRON HCL 4 MG/2 ML VIAL IVP ONE ×2 (02:15→03:15)
[2019-07-23] MEDS ORDERED: MORPHINE SULFATE 2 MG/ML SYRINGE IVP ONE (02:15)
[2019-07-23 02:26] LABS: ALANINE AMINOTRANSFERASE 14 U/L (12-78); ALBUMIN 3.8 g/dL (3.4-5.0); ALKALINE PHOSPHATASE 109 U/L (46-116); ANION GAP 31 mmol/L (8-16); ASPARTATE AMINOTRANSFERASE 18 U/L (15-37); BILIRUBIN,TOTAL 0.5 mg/dL (0.1-1.0); CALCIUM, TOTAL 8.6 mg/dL (8.8-10.5); CHLORIDE 96 mmol/L (98-107); GLUCOSE,RANDOM 72 mg/dL (70-110); HCG,QUANTITATIVE < 1 mIU/mL (0-6); SODIUM SERUM 135 mmol/L (136-145); TOTAL PROTEIN, SERUM 7.4 g/dL (6.4-8.2)
[2019-07-23 02:46] LABS: GLOMERULAR FILTR. RATE CALC 2 mL/min (>60)
[2019-07-23 02:49] LABS: B-TYPE NATRIURETIC PEPTIDE 3540 pg/mL (0-100)
[2019-07-23 02:54] LABS: CARBON DIOXIDE 8 mmol/L (22-29); UREA NITROGEN, BLOOD 199 mg/dL (7-18)
[2019-07-23] MEDS ORDERED: DEXTROSE 50%-WATER 25 GM/50 ML SYRINGE IVP ONE (03:00)
[2019-07-23] MEDS ORDERED: ALBUTEROL SULFATE 5 MG/ML 20 ML NEB SOLN [BULK] NEB ONE (03:00)
[2019-07-23] MEDS ORDERED: INSULIN REGULAR, HUMAN 100 UNITS/ML IVP ONE (03:00)
[2019-07-23] MEDS ORDERED: CALCIUM GLUCONATE 100 MG/ML 10 ML IVP ONE (03:00)
[2019-07-23 03:26] LABS: GLUCOSE,POINT OF CARE 72 MG/DL (70-110)
[2019-07-23] MEDS ORDERED: SODIUM ZIRCONIUM CYCLOSILICATE 5 GM POWDER PACKET PO ONE (03:30)
[2019-07-23 04:45] VITALS: BP 157/101
[2019-07-23] MEDS ORDERED: 0.9% SODIUM CHLORIDE 10 ML SYRINGE IVP PRN (05:15)
[2019-07-23] MEDS ORDERED: ACETAMINOPHEN 325 MG TABLET PO PRN (05:15)
[2019-07-23] MEDS ORDERED: ONDANSETRON HCL 4 MG/2 ML VIAL IVP PRN (05:15)
[2019-07-23] MEDS ORDERED: MAGNESIUM HYDROXIDE SUSPENSION 30 ML UDCUP PO PRN (05:15)
[2019-07-23] MEDS: OxyCODONE HCL/ACETAMINOPHEN 5-325 MG TABLET PO PRN ×3 (06:02→15:54)
[2019-07-23] MEDS: LEVOTHYROXINE SODIUM 75 MCG TABLET PO SCH (06:02)
[2019-07-23] MEDS ORDERED: LIPASE PO SCH (08:00)
[2019-07-23] MEDS ORDERED: PROTEASE PO SCH (08:00)
[2019-07-23] MEDS ORDERED: AMYLASE PO SCH (08:00)
[2019-07-23] MEDS: SEVELAMER CARBONATE 800 MG TABLET PO SCH ×3 (08:00→17:46)
[2019-07-23] MEDS ORDERED: [UNRECOGNIZED DRUG - OTHER] PO SCH (08:00)
[2019-07-23 09:00] VITALS: BP 156/85
[2019-07-23] MEDS ORDERED: GABAPENTIN 300 MG CAPSULE PO SCH (09:00)
[2019-07-23] MEDS ORDERED: FAMOTIDINE 10 MG/ML 2 ML VIAL IVP SCH (09:00)
[2019-07-23] MEDS ORDERED: DOCUSATE SODIUM 100 MG CAPSULE PO SCH (09:00)
[2019-07-23] MEDS: AmLODIPine BESYLATE 10 MG TABLET PO SCH (10:20)
[2019-07-23] MEDS: HYDROXYCHLOROQUINE SULFATE 200 MG TABLET PO SCH ×2 (10:20→21:03)
[2019-07-23] MEDS ORDERED: DOCUSATE SODIUM 100 MG CAPSULE PO PRN (11:15)
[2019-07-23] MEDS ORDERED: METOCLOPRAMIDE HCL 5 MG/ML 2 ML VIAL IVP ONE (11:30)
[2019-07-23 11:35] VITALS: BP 154/55
[2019-07-23 12:05] LABS: ALBUMIN 4.3 g/dL (3.4-5.0); BILIRUBIN,TOTAL 0.4 mg/dL (0.1-1.0); CALCIUM, TOTAL 9.2 mg/dL (8.8-10.5); CREATININE 17.53 mg/dL (0.60-1.30); POTASSIUM 3.7 mmol/L (3.5-5.1); TOTAL PROTEIN, SERUM 8.2 g/dL (6.4-8.2)
[2019-07-23] MEDS ORDERED: SODIUM BICARBONATE [ADULT] 8.4% 50 MEQ/50 ML SYRINGE IVP ONE (13:45)
[2019-07-23] MEDS ORDERED: EPOETIN ALFA 10,000 UNITS/ML 2 ML VIAL SQ ONE (14:00)
[2019-07-23] MEDS ORDERED: METOCLOPRAMIDE HCL 5 MG/ML 2 ML VIAL IVP PRN (14:15)
[2019-07-23 15:57] VITALS: BP 147/69
[2019-07-23] MEDS: GABAPENTIN 100 MG CAPSULE PO SCH ×2 (16:03→21:04)
[2019-07-23] MEDS ORDERED: LIDOCAINE/PF 1% 2 ML VIAL IM ONE (18:16)
[2019-07-23] MEDS ORDERED: DiphenhydrAMINE HCL 50 MG/ML VIAL IVP ONE (18:16)
[2019-07-23] MEDS ORDERED: ONDANSETRON HCL 4 MG TABLET PO ONE (18:45)
[2019-07-23 19:51] VITALS: BP 145/70
[2019-07-23 23:41] VITALS: BP 140/74
[2019-07-24] VITALS (20 sets, daily range): BP systolic 138–155; BP diastolic 71–98
[2019-07-24] MEDS: OxyCODONE HCL/ACETAMINOPHEN 5-325 MG TABLET PO PRN ×2 (01:13→05:16)
[2019-07-24] MEDS: ONDANSETRON HCL 4 MG/2 ML VIAL IVP PRN (01:21)
[2019-07-24] MEDS: SEVELAMER CARBONATE 800 MG TABLET PO SCH ×3 (08:00→18:00)
[2019-07-24 08:03] LABS: BASOPHILS % (AUTO) 0.9 % (0.0-2.0); EOSINOPHILS % (AUTO) 1.8 % (1.0-6.0); LYMPHOCYTES # (AUTO) 0.7 K/uL (1.0-4.8); LYMPHOCYTES % (AUTO) 11.4 % (22.0-44.0); MEAN CORPUSCULAR HEMOGLOBIN 27.8 pg (26.0-34.0); MEAN CORPUSCULAR HGB CONC 31.4 G/dL (31.0-37.0); MEAN CORPUSCULAR VOLUME 88 fL (80-100); MONOCYTES # (AUTO) 0.7 K/uL (0.1-1.0); MONOCYTES % (AUTO) 11.1 % (2.0-9.0); NEUTROPHILS # (AUTO) 4.6 K/uL (1.8-7.7); NEUTROPHILS % (AUTO) 74.8 % (40.0-70.0); RED BLOOD CELL COUNT(AUTO) 2.04 MIL/uL (4.00-5.20); RED CELL DISTRIBUTION WIDTH 17.9 % (11.5-14.5)
[2019-07-24 08:19] LABS: % IRON SATURATION 58.2 % (22-44)
[2019-07-24 08:28] LABS: HEMOGLOBIN 5.7 g/dL (12.0-16.0)
[2019-07-24 08:29] LABS: HEMATOCRIT 18.1 % (36-46); PLATELET COUNT (AUTO) 150 K/uL (150-450)
[2019-07-24 08:54] LABS: ALBUMIN 3.4 g/dL (3.4-5.0); BILIRUBIN,TOTAL 0.4 mg/dL (0.1-1.0); CALCIUM, TOTAL 8.2 mg/dL (8.8-10.5); CREATININE 15.85 mg/dL (0.60-1.30); FREE T4 (FREE THYROXINE) 1.12 ng/dL (0.76-1.46); POTASSIUM 3.8 mmol/L (3.5-5.1); THYROID STIMULATING HORMONE 12.67 uIU/mL (0.36-3.74); TOTAL PROTEIN, SERUM 6.5 g/dL (6.4-8.2)
[2019-07-24] MEDS ORDERED: PANTOPRAZOLE SODIUM 40 MG/VIAL IVP SCH ×2 (09:00→21:00)
[2019-07-24] MEDS ORDERED: PANTOPRAZOLE SODIUM 40 MG DR TABLET PO SCH (09:00)
[2019-07-24] MEDS: EPOETIN ALFA 10,000 UNITS/ML 2 ML VIAL SQ SCH (09:00)
[2019-07-24] MEDS: HYDROXYCHLOROQUINE SULFATE 200 MG TABLET PO SCH ×2 (10:54→21:24)
[2019-07-24] MEDS: LEVOTHYROXINE SODIUM 75 MCG TABLET PO SCH (10:54)
[2019-07-24] MEDS: AmLODIPine BESYLATE 10 MG TABLET PO SCH (10:54)
[2019-07-24] MEDS: GABAPENTIN 100 MG CAPSULE PO SCH ×3 (10:54→21:24)
[2019-07-24] MEDS: PANTOPRAZOLE SODIUM 40 MG/VIAL IVP SCH ×2 (11:06→21:24)
[2019-07-24 12:55] LABS: INR 1.2 (0.9-1.1); PROTHROMBIN TIME 12.5 SEC (9.4-11.6)
[2019-07-24] MEDS ORDERED: SODIUM CHLORIDE 0.9% 1,000 ML ONE (13:13)
[2019-07-24] MEDS ORDERED: DiphenhydrAMINE HCL 50 MG/ML VIAL ONE (17:20)
[2019-07-24 19:46] LABS: GLUCOMETER DEV NAME(LOC) 5S.2A; GLUCOSE,POINT OF CARE 84 MG/DL (70-110)
[2019-07-24 20:34] LABS: HEMATOCRIT 22.6 % (36-46); HEMOGLOBIN 7.4 g/dL (12.0-16.0)
[2019-07-25] VITALS (7 sets, daily range): BP systolic 141–157; BP diastolic 80–98
[2019-07-25] MEDS: OxyCODONE HCL/ACETAMINOPHEN 5-325 MG TABLET PO PRN ×3 (02:44→21:21)
[2019-07-25] MEDS: ONDANSETRON HCL 4 MG/2 ML VIAL IVP PRN ×2 (02:47→09:53)
[2019-07-25 03:33] LABS: BASOPHILS % (AUTO) 1.3 % (0.0-2.0); HEMATOCRIT 25.6 % (36-46); HEMOGLOBIN 8.4 g/dL (12.0-16.0); LYMPHOCYTES % (AUTO) 17.3 % (22.0-44.0); MEAN CORPUSCULAR HEMOGLOBIN 28.5 pg (26.0-34.0); MEAN CORPUSCULAR HGB CONC 32.7 G/dL (31.0-37.0); MEAN CORPUSCULAR VOLUME 87 fL (80-100); MONOCYTES # (AUTO) 0.7 K/uL (0.1-1.0); MONOCYTES % (AUTO) 12.3 % (2.0-9.0); NEUTROPHILS # (AUTO) 3.8 K/uL (1.8-7.7); NEUTROPHILS % (AUTO) 66.1 % (40.0-70.0); PLATELET COUNT (AUTO) 174 K/uL (150-450); RED BLOOD CELL COUNT(AUTO) 2.94 MIL/uL (4.00-5.20); RED CELL DISTRIBUTION WIDTH 16.4 % (11.5-14.5)
[2019-07-25 03:54] LABS: ALBUMIN 3.1 g/dL (3.4-5.0); BILIRUBIN,TOTAL 0.4 mg/dL (0.1-1.0); CALCIUM, TOTAL 8.2 mg/dL (8.8-10.5); CREATININE 9.76 mg/dL (0.60-1.30); POTASSIUM 3.7 mmol/L (3.5-5.1); TOTAL PROTEIN, SERUM 6.4 g/dL (6.4-8.2)
[2019-07-25] MEDS: LEVOTHYROXINE SODIUM 100 MCG TABLET PO SCH (05:47)
[2019-07-25] MEDS: SEVELAMER CARBONATE 800 MG TABLET PO SCH ×3 (08:00→17:58)
[2019-07-25] MEDS: GABAPENTIN 100 MG CAPSULE PO SCH ×3 (09:00→21:20)
[2019-07-25 10:08] LABS: HEMATOCRIT 27.3 % (36-46)
[2019-07-25] MEDS: AmLODIPine BESYLATE 10 MG TABLET PO SCH (15:43)
[2019-07-25] MEDS: PANTOPRAZOLE SODIUM 40 MG/VIAL IVP SCH ×2 (15:43→21:20)
[2019-07-25] MEDS: PredniSONE 10 MG TABLET PO SCH (15:44)
[2019-07-25] MEDS: HYDROXYCHLOROQUINE SULFATE 200 MG TABLET PO SCH ×2 (15:45→21:22)
[2019-07-25 16:51] LABS: HEMATOCRIT 28.7 % (36-46); HEMOGLOBIN 9.4 g/dL (12.0-16.0)
[2019-07-25] MEDS ORDERED: DiphenhydrAMINE HCL 50 MG/ML VIAL ONE (16:58)
[2019-07-25] MEDS ORDERED: DiphenhydrAMINE HCL 25 MG CAPSULE PO PRN (21:45)
[2019-07-25 21:51] LABS: HEMATOCRIT 29.4 % (36-46); HEMOGLOBIN 9.7 g/dL (12.0-16.0)
[2019-07-26] MEDS: ONDANSETRON HCL 4 MG/2 ML VIAL IVP PRN ×2 (03:40→08:42)
[2019-07-26 04:12] VITALS: BP 150/85
[2019-07-26 07:15] VITALS: BP 151/94
[2019-07-26] MEDS: LEVOTHYROXINE SODIUM 100 MCG TABLET PO SCH (07:30)
[2019-07-26 08:06] LABS: BASOPHILS % (AUTO) 0.5 % (0.0-2.0); EOSINOPHILS % (AUTO) 0.1 % (1.0-6.0); HEMATOCRIT 26.3 % (36-46); HEMOGLOBIN 8.6 g/dL (12.0-16.0); LYMPHOCYTES # (AUTO) 0.5 K/uL (1.0-4.8); LYMPHOCYTES % (AUTO) 14.3 % (22.0-44.0); MEAN CORPUSCULAR HEMOGLOBIN 28.7 pg (26.0-34.0); MEAN CORPUSCULAR HGB CONC 32.6 G/dL (31.0-37.0); MEAN CORPUSCULAR VOLUME 88 fL (80-100); MONOCYTES # (AUTO) 0.4 K/uL (0.1-1.0); MONOCYTES % (AUTO) 11.2 % (2.0-9.0); NEUTROPHILS # (AUTO) 2.7 K/uL (1.8-7.7); NEUTROPHILS % (AUTO) 73.9 % (40.0-70.0); PLATELET COUNT (AUTO) 186 K/uL (150-450); RED BLOOD CELL COUNT(AUTO) 2.98 MIL/uL (4.00-5.20); RED CELL DISTRIBUTION WIDTH 16.2 % (11.5-14.5)
[2019-07-26] MEDS: SEVELAMER CARBONATE 800 MG TABLET PO SCH ×3 (08:41→17:57)
[2019-07-26] MEDS: PredniSONE 10 MG TABLET PO SCH (08:42)
[2019-07-26] MEDS: AmLODIPine BESYLATE 10 MG TABLET PO SCH (08:42)
[2019-07-26] MEDS: HYDROXYCHLOROQUINE SULFATE 200 MG TABLET PO SCH ×2 (08:42→22:06)
[2019-07-26] MEDS: GABAPENTIN 100 MG CAPSULE PO SCH ×3 (08:42→22:06)
[2019-07-26] MEDS: PANTOPRAZOLE SODIUM 40 MG/VIAL IVP SCH ×2 (08:42→22:06)
[2019-07-26] MEDS: EPOETIN ALFA 10,000 UNITS/ML 2 ML VIAL SQ SCH (08:45)
[2019-07-26 09:02] LABS: ALBUMIN 3.3 g/dL (3.4-5.0); BILIRUBIN,TOTAL 0.4 mg/dL (0.1-1.0); CALCIUM, TOTAL 8.5 mg/dL (8.8-10.5); CREATININE 7.59 mg/dL (0.60-1.30); POTASSIUM 3.7 mmol/L (3.5-5.1); TOTAL PROTEIN, SERUM 6.7 g/dL (6.4-8.2)
[2019-07-26] MEDS: OxyCODONE HCL/ACETAMINOPHEN 5-325 MG TABLET PO PRN ×2 (09:25→20:33)
[2019-07-26 11:15] VITALS: BP 132/82
[2019-07-26 15:39] LABS: HEMATOCRIT 27.2 % (36-46)
[2019-07-26] MEDS ORDERED: LEVOFLOXACIN 750 MG TABLET PO ONE (16:00)
[2019-07-26 16:35] VITALS: BP 135/84
[2019-07-26 20:05] LABS: HEMATOCRIT 43.9 % (36-46); HEMOGLOBIN 13.7 g/dL (12.0-16.0)
[2019-07-26 20:10] VITALS: BP 145/86
[2019-07-26] MEDS ORDERED: HYDROmorphone HCL 2 MG TABLET PO ONE (22:00)
[2019-07-26 22:29] LABS: HEMATOCRIT 26.6 % (36-46); HEMOGLOBIN 8.6 g/dL (12.0-16.0)
[2019-07-27] VITALS (7 sets, daily range): BP systolic 127–151; BP diastolic 70–96
[2019-07-27] MEDS ORDERED: SODIUM CHLORIDE 0.9% 1,000 ML ONE ×2 (04:44)
[2019-07-27] MEDS: LEVOTHYROXINE SODIUM 100 MCG TABLET PO SCH (05:54)
[2019-07-27] MEDS: OxyCODONE HCL/ACETAMINOPHEN 5-325 MG TABLET PO PRN ×2 (05:55→08:39)
[2019-07-27 07:03] LABS: HEMATOCRIT 27.1 % (36-46); HEMOGLOBIN 8.9 g/dL (12.0-16.0)
[2019-07-27 07:59] LABS: ALBUMIN 3.5 g/dL (3.4-5.0); BILIRUBIN,TOTAL 0.3 mg/dL (0.1-1.0); CALCIUM, TOTAL 8.3 mg/dL (8.8-10.5); CREATININE 9.36 mg/dL (0.60-1.30); MAGNESIUM 1.8 mg/dL (1.80-2.40); PHOSPHORUS 4.7 mg/dL (2.5-4.9); POTASSIUM 4.3 mmol/L (3.5-5.1); TOTAL PROTEIN, SERUM 6.9 g/dL (6.4-8.2)
[2019-07-27] MEDS: PANTOPRAZOLE SODIUM 40 MG/VIAL IVP SCH ×2 (08:34→20:47)
[2019-07-27] MEDS: HYDROXYCHLOROQUINE SULFATE 200 MG TABLET PO SCH ×2 (08:34→20:46)
[2019-07-27] MEDS: AmLODIPine BESYLATE 10 MG TABLET PO SCH (08:35)
[2019-07-27] MEDS: SEVELAMER CARBONATE 800 MG TABLET PO SCH ×3 (08:35→17:48)
[2019-07-27] MEDS: GABAPENTIN 100 MG CAPSULE PO SCH ×3 (08:35→20:46)
[2019-07-27] MEDS: PredniSONE 10 MG TABLET PO SCH (08:35)
[2019-07-27 12:28] LABS: HEMATOCRIT 29.7 % (36-46); HEMOGLOBIN 9.6 g/dL (12.0-16.0)
[2019-07-27] MEDS ORDERED: LEVO750T68 PO (15:01)
[2019-07-27] MEDS ORDERED: LEVO100 PO (15:06)
[2019-07-27] MEDS ORDERED: SEVE800T17 PO (15:11)
[2019-07-27] MEDS ORDERED: PRED20 PO ×4 (15:14→15:26)
[2019-07-27] MEDS ORDERED: PRED10 PO (15:28)
[2019-07-27] MEDS ORDERED: LEVOFLOXACIN 500 MG/D5% WATER 100 ML IV SCH (16:00)
[2019-07-27] MEDS: HEPARIN SODIUM,PORCINE 5,000 UNITS/ML VIAL SQ SCH ×2 (16:21→20:46)
[2019-07-27] MEDS ORDERED: SODIUM CHLORIDE 0.9% 250 ML IV ONE (16:23)
[2019-07-27 17:38] LABS: HEMATOCRIT 27.4 % (36-46)
[2019-07-27] MEDS ORDERED: DiphenhydrAMINE HCL 50 MG/ML VIAL IVP ONE (18:11)
[2019-07-27] MEDS: ONDANSETRON HCL 4 MG/2 ML VIAL IVP PRN (20:47)
[2019-07-27] MEDS: DOCUSATE SODIUM 100 MG CAPSULE PO SCH (20:56)
[2019-07-27] MEDS: HYDROmorphone HCL 2 MG TABLET PO PRN (20:56)
[2019-07-27 23:52] LABS: HEMATOCRIT 28.5 % (36-46); HEMOGLOBIN 9.1 g/dL (12.0-16.0)
[2019-07-28] MEDS: OxyCODONE HCL/ACETAMINOPHEN 5-325 MG TABLET PO PRN ×2 (02:16→08:47)
[2019-07-28 04:13] VITALS: BP 144/81
[2019-07-28] MEDS: HYDROmorphone HCL 2 MG TABLET PO PRN ×2 (05:05→14:53)
[2019-07-28] MEDS: LEVOTHYROXINE SODIUM 100 MCG TABLET PO SCH (05:37)
[2019-07-28 07:26] VITALS: BP 143/87
[2019-07-28] MEDS: HEPARIN SODIUM,PORCINE 5,000 UNITS/ML VIAL SQ SCH ×2 (08:42→16:00)
[2019-07-28] MEDS: EPOETIN ALFA 10,000 UNITS/ML 2 ML VIAL SQ SCH (08:42)
[2019-07-28] MEDS: PANTOPRAZOLE SODIUM 40 MG/VIAL IVP SCH (08:45)
[2019-07-28] MEDS: GABAPENTIN 100 MG CAPSULE PO SCH ×3 (08:46→16:16)
[2019-07-28] MEDS: PredniSONE 10 MG TABLET PO SCH (08:46)
[2019-07-28] MEDS: AmLODIPine BESYLATE 10 MG TABLET PO SCH (08:46)
[2019-07-28] MEDS: DOCUSATE SODIUM 100 MG CAPSULE PO SCH (08:46)
[2019-07-28] MEDS: HYDROXYCHLOROQUINE SULFATE 200 MG TABLET PO SCH (08:47)
[2019-07-28] MEDS: SEVELAMER CARBONATE 800 MG TABLET PO SCH ×3 (08:47→17:53)
[2019-07-28 11:29] VITALS: BP 148/94
[2019-07-28 16:14] VITALS: BP 151/103
== END 2019-07-28 18:15 | disposition home or self-care (01) | DRG 640 ==
LOC: EMS 23:35 → 5S 07-23 03:37
PROVIDERS: ADMIT Internal Medicine; ATTEND Internal Medicine
PROC: 5A1D70Z Performance of Urinary Filtration, Intermittent, Less than 6 Hours Per Day (ICD-10-PCS; 2019-07-23)
PROC: 30233N1 Transfusion of Nonautologous Red Blood Cells into Peripheral Vein, Percutaneous Approach (ICD-10-PCS; principal; 2019-07-24)
PROC: 5A1D70Z Performance of Urinary Filtration, Intermittent, Less than 6 Hours Per Day (ICD-10-PCS; 2019-07-24)
PROC: 5A1D70Z Performance of Urinary Filtration, Intermittent, Less than 6 Hours Per Day (ICD-10-PCS; 2019-07-25)
PROC: 5A1D70Z Performance of Urinary Filtration, Intermittent, Less than 6 Hours Per Day (ICD-10-PCS; 2019-07-27)
DX: E87.5 Hyperkalemia (principal); I50.43 Acute on chronic combined systolic (congestive) and diastolic (congestive) heart failure; J18.9 Pneumonia, unspecified organism; N18.6 End stage renal disease; I13.2 Hypertensive heart and chronic kidney disease with heart failure and with stage 5 chronic kidney disease, or end stage renal disease; J81.1 Chronic pulmonary edema; E44.0 Moderate protein-calorie malnutrition; E87.1 Hypo-osmolality and hyponatremia; D63.1 Anemia in chronic kidney disease; Z99.2 Dependence on renal dialysis; M32.9 Systemic lupus erythematosus, unspecified; E03.9 Hypothyroidism, unspecified; R09.1 Pleurisy; D64.9 Anemia, unspecified; Z91.19 Patient's noncompliance with other medical treatment and regimen; Z86.73 Personal history of transient ischemic attack (TIA), and cerebral infarction without residual deficits; Z88.1 Allergy status to other antibiotic agents; Z88.8 Allergy status to other drugs, medicaments and biological substances; Z20.828 Contact with and (suspected) exposure to other viral communicable diseases; Z68.25 Body mass index [BMI] 25.0-25.9, adult
CPT/HCPCS: 71250; 76604; 82728; 83540; 83550; 83605; 83735; 84100; 84145; 84439; 84443; 85014; 85018; 86850; 86900; 86901; 86923; 87040; 87081; 93005; 93306; 94644; 99291; C9113; J0610; J0885; J1200; J1644; J1815; J1956; J2270; J2405; J2765; J3490; J7030; J7050; P9016; Q0162

== ENCOUNTER 2019-10-18 22:38 | Inpatient (IN) | payer MEDICARE, MEDICAID ==
[~2019-10-18] VITALS: Ht 157.5 cm; Wt 62.1 kg
[~2019-10-18 22:38] MED LIST changes: +AMLO-258 PO; -AMLO10TA7 PO; +HYDR200T4 PO; -HYDR200T83 PO; +LEVO100 PO; -LEVO75 PO; -LIPA1CAP8 PO; -TRAM50TA4 PO
[2019-10-18 23:56] LABS: HEMATOCRIT 32.7 % (36-46); HEMOGLOBIN 10.4 g/dL (12.0-16.0); MEAN CORPUSCULAR HEMOGLOBIN 29.6 pg (26.0-34.0); MEAN CORPUSCULAR HGB CONC 31.7 G/dL (31.0-37.0); MEAN CORPUSCULAR VOLUME 93 fL (80-100); RED BLOOD CELL COUNT(AUTO) 3.51 MIL/uL (4.00-5.20)
[2019-10-19 00:06] LABS: BAND NEUTROPHILS % (MANUAL) 0 % (0-5)
[2019-10-19 00:07] LABS: ALANINE AMINOTRANSFERASE 18 U/L (12-78); ALBUMIN 3.2 g/dL (3.4-5.0); ALKALINE PHOSPHATASE 131 U/L (46-116); ANION GAP 17 mmol/L (8-16); ASPARTATE AMINOTRANSFERASE 15 U/L (15-37); BILIRUBIN,TOTAL 0.4 mg/dL (0.1-1.0); CALCIUM, TOTAL 8.8 mg/dL (8.8-10.5); CARBON DIOXIDE 18 mmol/L (22-29); CHLORIDE 97 mmol/L (98-107); CREATININE 18.69 mg/dL (0.60-1.30); GLOMERULAR FILTR. RATE CALC 3 mL/min (>60); GLUCOSE,RANDOM 114 mg/dL (70-110); HCG,QUANTITATIVE < 1 mIU/mL (0-6); LIPASE 110 U/L (73-393); POTASSIUM 5.6 mmol/L (3.5-5.1); SODIUM SERUM 132 mmol/L (136-145); TOTAL PROTEIN, SERUM 6.6 g/dL (6.4-8.2)
[2019-10-19 00:15] LABS: UREA NITROGEN, BLOOD 131 mg/dL (7-18)
[2019-10-19] MEDS ORDERED: ONDANSETRON HCL 4 MG/2 ML VIAL IVP ONE (01:00)
[2019-10-19] MEDS ORDERED: METOCLOPRAMIDE HCL 5 MG/ML 2 ML VIAL IVP ONE (01:00)
[2019-10-19] MEDS ORDERED: HYDROmorphone 2 MG/ML SYRINGE IVP ONE (01:00)
[2019-10-19 01:11] LABS: LYMPHOCYTES % (MANUAL) 28 % (22-44); MONOCYTES % (MANUAL) 15 % (2-9); SEGMENTED NEUTROPHILS % 57 % (40-70)
[2019-10-19 01:12] LABS: PLATELET COUNT (AUTO) 189 K/uL (150-450)
[2019-10-19] MEDS ORDERED: 0.9% SODIUM CHLORIDE 10 ML SYRINGE IVP PRN (02:00)
[2019-10-19] MEDS ORDERED: ACETAMINOPHEN 325 MG TABLET PO PRN (02:00)
[2019-10-19] MEDS ORDERED: ONDANSETRON HCL 4 MG/2 ML VIAL IVP PRN (02:00)
[2019-10-19] MEDS: HYDROCODONE/ACETAMINOPHEN 5-325 MG TABLET PO PRN ×2 (05:28→21:21)
[2019-10-19] MEDS ORDERED: DiphenhydrAMINE HCL 50 MG/ML VIAL IVP ONE (06:30)
[2019-10-19 08:36] VITALS: BP 148/94
[2019-10-19 11:50] VITALS: BP 148/87
[2019-10-19] MEDS: ONDANSETRON HCL 4 MG/2 ML VIAL IVP PRN ×2 (14:16→22:29)
[2019-10-19 15:22] VITALS: BP 143/87
[2019-10-19] MEDS ORDERED: PNEUMOCOCCAL VACCINE POLYVALENT 0.5 ML VIAL [PPSV23] IM ONE (19:45)
[2019-10-19 20:38] VITALS: BP 157/105
[2019-10-19 21:18] VITALS: BP 157/98
[2019-10-19 23:42] VITALS: BP 161/101
[2019-10-20] MEDS: DiphenhydrAMINE HCL 25 MG CAPSULE PO PRN ×2 (01:11→22:24)
[2019-10-20] MEDS: HYDROCODONE/ACETAMINOPHEN 5-325 MG TABLET PO PRN ×4 (03:26→22:24)
[2019-10-20 04:50] VITALS: BP 171/62
[2019-10-20 08:11] VITALS: BP 168/105
[2019-10-20] MEDS: EPOETIN ALFA 10,000 UNITS/ML 2 ML VIAL SQ SCH ×2 (08:21→08:24)
[2019-10-20] MEDS: ONDANSETRON HCL 4 MG/2 ML VIAL IVP PRN ×2 (08:27→16:04)
[2019-10-20 11:27] LABS: HEMOGLOBIN 10.4 g/dL (12.0-16.0); MEAN CORPUSCULAR HEMOGLOBIN 30.1 pg (26.0-34.0); MEAN CORPUSCULAR HGB CONC 32.7 G/dL (31.0-37.0); MEAN CORPUSCULAR VOLUME 92 fL (80-100); PLATELET COUNT (AUTO) 172 K/uL (150-450); RED BLOOD CELL COUNT(AUTO) 3.47 MIL/uL (4.00-5.20); RED CELL DISTRIBUTION WIDTH 19.2 % (11.5-14.5)
[2019-10-20 11:39] LABS: BAND NEUTROPHILS % (MANUAL) 0 % (0-5)
[2019-10-20 11:44] LABS: ALBUMIN 2.9 g/dL (3.4-5.0); BILIRUBIN,TOTAL 0.3 mg/dL (0.1-1.0); CALCIUM, TOTAL 8.6 mg/dL (8.8-10.5); TOTAL PROTEIN, SERUM 6.5 g/dL (6.4-8.2)
[2019-10-20 11:47] LABS: CREATININE 20.83 mg/dL (0.60-1.30); POTASSIUM 6.5 mmol/L (3.5-5.1)
[2019-10-20 11:53] VITALS: BP 155/91
[2019-10-20 11:55] LABS: EOSINOPHILS % (MANUAL) 1 % (1-6); LYMPHOCYTES % (MANUAL) 25 % (22-44); MONOCYTES % (MANUAL) 16 % (2-9); SEGMENTED NEUTROPHILS % 58 % (40-70)
[2019-10-20 15:05] VITALS: BP 139/97
[2019-10-20] MEDS ORDERED: DiphenhydrAMINE HCL 50 MG/ML VIAL ONE (17:26)
[2019-10-20] MEDS ORDERED: LIDOCAINE/PF 1% 2 ML VIAL ONE (17:26)
[2019-10-20 20:00] VITALS: BP 160/107
[2019-10-20] MEDS ORDERED: ONDANSETRON HCL 4 MG TABLET PO PRN (21:30)
[2019-10-21 00:20] VITALS: BP 164/114
[2019-10-21] MEDS: AmLODIPine BESYLATE 10 MG TABLET PO SCH ×2 (02:16→11:38)
[2019-10-21 04:30] VITALS: BP 156/102
[2019-10-21] MEDS ORDERED: LEVOTHYROXINE SODIUM 100 MCG TABLET PO SCH (06:30)
[2019-10-21 07:00] LABS: BASOPHILS % (AUTO) 0.8 % (0.0-2.0); HEMATOCRIT 30.7 % (36-46); LYMPHOCYTES # (AUTO) 1.4 K/uL (1.0-4.8); LYMPHOCYTES % (AUTO) 20.7 % (22.0-44.0); MEAN CORPUSCULAR HEMOGLOBIN 29.7 pg (26.0-34.0); MEAN CORPUSCULAR HGB CONC 32.6 G/dL (31.0-37.0); MEAN CORPUSCULAR VOLUME 91 fL (80-100); MONOCYTES # (AUTO) 1.1 K/uL (0.1-1.0); NEUTROPHILS % (AUTO) 60.5 % (40.0-70.0); PLATELET COUNT (AUTO) 156 K/uL (150-450); RED BLOOD CELL COUNT(AUTO) 3.37 MIL/uL (4.00-5.20); RED CELL DISTRIBUTION WIDTH 18.9 % (11.5-14.5)
[2019-10-21 07:37] LABS: ALBUMIN 2.8 g/dL (3.4-5.0); BILIRUBIN,TOTAL 0.3 mg/dL (0.1-1.0); CALCIUM, TOTAL 8.5 mg/dL (8.8-10.5); CREATININE 15.12 mg/dL (0.60-1.30); MAGNESIUM 2.5 mg/dL (1.80-2.40); PHOSPHORUS 6.1 mg/dL (2.5-4.9); TOTAL PROTEIN, SERUM 6.3 g/dL (6.4-8.2)
[2019-10-21 07:41] LABS: POTASSIUM 6.3 mmol/L (3.5-5.1)
[2019-10-21 07:54] VITALS: BP 150/95
[2019-10-21] MEDS: GABAPENTIN 300 MG CAPSULE PO SCH ×2 (08:06→16:34)
[2019-10-21] MEDS: SEVELAMER CARBONATE 800 MG TABLET PO SCH ×2 (08:06→13:54)
[2019-10-21] MEDS ORDERED: HYDROXYCHLOROQUINE SULFATE 200 MG TABLET PO SCH (09:00)
[2019-10-21] MEDS ORDERED: PANTOPRAZOLE SODIUM 40 MG DR TABLET PO SCH (09:00)
[2019-10-21] MEDS ORDERED: DiphenhydrAMINE HCL 50 MG/ML VIAL IVP PRN (09:30)
[2019-10-21] MEDS ORDERED: VITAMIN B COMP/VIT C/FOLIC ACID CAPSULE PO SCH (09:30)
[2019-10-21 11:38] VITALS: BP 165/110
[2019-10-21] MEDS ORDERED: HydrALAZINE HCL 25 MG TABLET PO PRN (15:45)
[2019-10-21] MEDS ORDERED: CARVEDILOL 12.5 MG TABLET PO SCH (16:00)
[2019-10-21 16:11] VITALS: BP 132/88
[2019-10-21] MEDS ORDERED: DiphenhydrAMINE HCL 50 MG/ML VIAL IVP ONE (17:12)
[2019-10-21] MEDS ORDERED: LIDOCAINE/PF 1% 2 ML VIAL IM ONE (17:12)
[2019-10-22] MEDS ORDERED: PredniSONE 20 MG TABLET PO SCH (09:00)
== END 2019-10-21 17:16 | disposition left against medical advice (07) | DRG 640 ==
LOC: EMS 22:38 → 6N 10-19 02:07 → 4E 10-19 20:05
PROVIDERS: ADMIT Hospitalist; ATTEND Hospitalist
PROC: 5A1D70Z Performance of Urinary Filtration, Intermittent, Less than 6 Hours Per Day (ICD-10-PCS; principal; 2019-10-20)
DX: E87.5 Hyperkalemia (principal); N18.6 End stage renal disease; I12.0 Hypertensive chronic kidney disease with stage 5 chronic kidney disease or end stage renal disease; K86.1 Other chronic pancreatitis; J90 Pleural effusion, not elsewhere classified; D63.1 Anemia in chronic kidney disease; E87.1 Hypo-osmolality and hyponatremia; M32.14 Glomerular disease in systemic lupus erythematosus; E03.9 Hypothyroidism, unspecified; K52.9 Noninfective gastroenteritis and colitis, unspecified; Z83.2 Family history of diseases of the blood and blood-forming organs and certain disorders involving the immune mechanism; Z86.73 Personal history of transient ischemic attack (TIA), and cerebral infarction without residual deficits; Z99.2 Dependence on renal dialysis
CPT/HCPCS: 83735; 84100; 87081; 87340; G0378; J0885; J1170; J1200; J2405; J2765; J3490; Q0162

== ENCOUNTER 2019-10-31 20:10 | Emergency (ER) | payer MEDICAID, MEDICARE ==
[~2019-10-31] VITALS: Ht 157.5 cm; Wt 65.5 kg
[2019-10-31] MEDS ORDERED: VALS40TA4 PO (20:16)
[2019-10-31] MEDS ORDERED: CLON0.3T PO (20:16)
[2019-10-31] MEDS ORDERED: HYDR10TA31 PO (20:18)
[2019-10-31] MEDS ORDERED: NIFE-64 PO (20:18)
[2019-10-31] MEDS ORDERED: CARV12 PO (20:18)
[2019-10-31 20:37] LABS: HEMATOCRIT 32.3 % (36-46); MEAN CORPUSCULAR HEMOGLOBIN 28.9 pg (26.0-34.0); MEAN CORPUSCULAR VOLUME 93 fL (80-100); PLATELET COUNT (AUTO) 173 K/uL (150-450); RED BLOOD CELL COUNT(AUTO) 3.45 MIL/uL (4.00-5.20); RED CELL DISTRIBUTION WIDTH 19.7 % (11.5-14.5)
[2019-10-31 20:48] LABS: ANION GAP 16 mmol/L (8-16); CALCIUM, TOTAL 9.5 mg/dL (8.8-10.5); CARBON DIOXIDE 27 mmol/L (22-29); CHLORIDE 100 mmol/L (98-107); GLOMERULAR FILTR. RATE CALC 5 mL/min (>60); GLUCOSE,RANDOM 89 mg/dL (70-110); POTASSIUM 4.8 mmol/L (3.5-5.1); SODIUM SERUM 143 mmol/L (136-145); UREA NITROGEN, BLOOD 36 mg/dL (7-18)
[2019-10-31 20:59] LABS: ALANINE AMINOTRANSFERASE 14 U/L (12-78); ALBUMIN 3.6 g/dL (3.4-5.0); ALKALINE PHOSPHATASE 141 U/L (46-116); ASPARTATE AMINOTRANSFERASE 15 U/L (15-37); BILIRUBIN,TOTAL 0.4 mg/dL (0.1-1.0); HCG,QUANTITATIVE < 1 mIU/mL (0-6); LIPASE 76 U/L (73-393); TOTAL PROTEIN, SERUM 7.3 g/dL (6.4-8.2)
[2019-10-31 21:25] LABS: BAND NEUTROPHILS % (MANUAL) 2 % (0-5); EOSINOPHILS % (MANUAL) 1 % (1-6); LYMPHOCYTES % (MANUAL) 16 % (22-44); MONOCYTES % (MANUAL) 6 % (2-9); SEGMENTED NEUTROPHILS % 75 % (40-70)
[2019-10-31] MEDS ORDERED: LORazepam 1 MG TABLET PO ONE ×2 (22:45→23:45)
[2019-10-31] MEDS ORDERED: ACETAMINOPHEN 325 MG TABLET PO ONE (22:45)
[2019-10-31] MEDS ORDERED: FAMOTIDINE 10 MG/ML 2 ML VIAL IVP ONE (22:45)
[2019-10-31] MEDS ORDERED: FAMOTIDINE 20 MG TABLET PO ONE (23:00)
[2019-10-31 23:05] LABS: GLUCOSE,POINT OF CARE 90 MG/DL (70-110)
[2019-10-31 23:12] LABS: FREE T4 (FREE THYROXINE) 1.16 ng/dL (0.76-1.46); THYROID STIMULATING HORMONE 6.35 uIU/mL (0.36-3.74)
[2019-11-01] MEDS ORDERED: HydrALAZINE HCL 10 MG TABLET PO ONE (01:45)
[2019-11-01] MEDS ORDERED: CloNIDine HCL 0.1 MG TABLET PO ONE (01:45)
[2019-11-01 02:42] VITALS: BP 175/98
== END 2019-11-01 02:50 | disposition home or self-care (01) ==
LOC: EMS 20:12
DX: R11.2 Nausea with vomiting, unspecified (principal); R19.7 Diarrhea, unspecified; R10.13 Epigastric pain; Z88.0 Allergy status to penicillin; Z91.041 Radiographic dye allergy status; Z88.8 Allergy status to other drugs, medicaments and biological substances; Z79.899 Other long term (current) drug therapy
CPT/HCPCS: 36415; 80053; 82962; 83690; 84439; 84443; 84702; 85025; 99285; G0480; J3490

== ENCOUNTER 2019-11-05 23:21 | Emergency (ER) | payer MEDICARE, MEDICAID ==
[~2019-11-05] VITALS: Ht 157.5 cm; Wt 65.5 kg
[~2019-11-05 23:21] MED LIST changes: +CARV12 PO; +HYDR10TA31 PO; +NIFE-64 PO; +VALS40TA4 PO
[2019-11-06] MEDS ORDERED: ACETAMINOPHEN 500 MG TABLET PO ONE (00:45)
[2019-11-06] MEDS ORDERED: ONDANSETRON HCL 4 MG/2 ML VIAL IVP ONE (00:45)
[2019-11-06 01:37] LABS: BASOPHILS % (AUTO) 1.1 % (0.0-2.0); EOSINOPHILS % (AUTO) 3.4 % (1.0-6.0); HEMATOCRIT 27.7 % (36-46); HEMOGLOBIN 8.7 g/dL (12.0-16.0); MEAN CORPUSCULAR HGB CONC 31.4 G/dL (31.0-37.0); MEAN CORPUSCULAR VOLUME 92 fL (80-100); MONOCYTES # (AUTO) 0.8 K/uL (0.1-1.0); MONOCYTES % (AUTO) 13.3 % (2.0-9.0); NEUTROPHILS # (AUTO) 4.1 K/uL (1.8-7.7); NEUTROPHILS % (AUTO) 66.2 % (40.0-70.0); PLATELET COUNT (AUTO) 161 K/uL (150-450)
[2019-11-06 01:59] LABS: ANION GAP 18 mmol/L (8-16); CARBON DIOXIDE 22 mmol/L (22-29); CHLORIDE 97 mmol/L (98-107); GLUCOSE,RANDOM 83 mg/dL (70-110); POTASSIUM 4.6 mmol/L (3.5-5.1); SODIUM SERUM 137 mmol/L (136-145); UREA NITROGEN, BLOOD 75 mg/dL (7-18)
[2019-11-06 02:00] LABS: CREATININE 20.86 mg/dL (0.60-1.30); GLOMERULAR FILTR. RATE CALC 2 mL/min (>60)
[2019-11-06 02:31] LABS: CREATINE KINASE, TOTAL ONLY 82 U/L (26-192); HCG,QUANTITATIVE < 1 mIU/mL (0-6)
[2019-11-06 04:41] VITALS: BP 143/75
[2019-11-06 05:54] LABS: APPEARANCE,URINE TURBID (CLEAR); GLUCOSE, URINE (UA) 100 mg/dL (NEGATIVE); KETONES,URINE 40 mg/dL (NEGATIVE); LEUKOCYTE ESTERASE ,URINE LARGE (NEGATIVE); NITRATE,URINE POSITIVE (NEGATIVE); OCCULT BLOOD,URINE LARGE (NEGATIVE); PH,URINE 7.5 (5.0-8.0); PROTEIN,URINE SEE CONFIRM (NEGATIVE)
[2019-11-06 06:04] LABS: BILIRUBIN,URINE PRELIM. POSITIVE (NEGATIVE)
[2019-11-06 06:05] LABS: BACTERIA,URINE Few /HPF (None Seen); RBC,URINE >100 /HPF (0-2); SQUAMOUS EPITHELIAL CELL,UR Moderate /LPF (None Seen)
[2019-11-06 06:06] LABS: SULFOSALICYLIC ACID,URINE 4+ (Negative)
[2019-11-06] MEDS ORDERED: CEPHALEXIN MONOHYDRATE 500 MG CAPSULE PO ONE (06:15)
== END 2019-11-06 06:20 | disposition home or self-care (01) ==
LOC: EMS 23:21
DX: N39.0 Urinary tract infection, site not specified (principal); E83.41 Hypermagnesemia; Z20.828 Contact with and (suspected) exposure to other viral communicable diseases; Z88.0 Allergy status to penicillin; Z91.041 Radiographic dye allergy status
CPT/HCPCS: 36415; 71045; 74176; 80048; 81001; 81002; 82550; 83735; 84484; 84702; 85025; 87086; 87426; 93005; 96374; 99285; J2405

== ENCOUNTER 2019-11-29 02:17 | Emergency (ER) | payer MEDICARE, MEDICAID ==
[~2019-11-29] VITALS: Ht 157.5 cm; Wt 55.0 kg
[2019-11-29 06:15] VITALS: BP 138/82
[2019-11-29] MEDS ORDERED: ACETAMINOPHEN 500 MG TABLET PO ONE (06:15)
== END 2019-11-29 06:32 | disposition home or self-care (01) ==
LOC: EMS 02:18
DX: S73.101A Unspecified sprain of right hip, initial encounter (principal); N18.6 End stage renal disease; Z99.2 Dependence on renal dialysis; Z88.1 Allergy status to other antibiotic agents; Z88.8 Allergy status to other drugs, medicaments and biological substances; Z79.899 Other long term (current) drug therapy; W18.39XA Other fall on same level, initial encounter; Y93.89 Activity, other specified; Y92.89 Other specified places as the place of occurrence of the external cause; Y99.8 Other external cause status
CPT/HCPCS: 73502

== ENCOUNTER 2020-02-15 19:17 | Emergency (ER) | payer MEDICARE, MEDICAID ==
[~2020-02-15] VITALS: Ht 157.5 cm; Wt 55.0 kg
[~2020-02-15 19:17] MED LIST changes: +AMLO-257 PO; +CALA180L6 TP; -CARV12 PO; +CITA10TA99 PO; +DIPH25TA20 PO; -GABA-1181 PO; -HYDR10TA31 PO; +LIDO700A15 TP; +LORA-999 PO; -NIFE-64 PO; -VALS40TA4 PO
[2020-02-15] MEDS ORDERED: CELE100 PO (19:33)
[2020-02-15 21:12] LABS: BASOPHILS % (AUTO) 0.6 % (0.0-2.0); EOSINOPHILS % (AUTO) 3.7 % (1.0-6.0); HEMATOCRIT 32.2 % (36-46); HEMOGLOBIN 10.2 g/dL (12.0-16.0); LYMPHOCYTES % (AUTO) 17.1 % (22.0-44.0); MEAN CORPUSCULAR HEMOGLOBIN 29.8 pg (26.0-34.0); MEAN CORPUSCULAR HGB CONC 31.6 G/dL (31.0-37.0); MEAN CORPUSCULAR VOLUME 94 fL (80-100); MONOCYTES # (AUTO) 0.4 K/uL (0.1-1.0); MONOCYTES % (AUTO) 7.4 % (2.0-9.0); NEUTROPHILS # (AUTO) 4.2 K/uL (1.8-7.7); NEUTROPHILS % (AUTO) 71.2 % (40.0-70.0); PLATELET COUNT (AUTO) 165 K/uL (150-450); RED BLOOD CELL COUNT(AUTO) 3.42 MIL/uL (4.00-5.20); RED CELL DISTRIBUTION WIDTH 22.7 % (11.5-14.5)
[2020-02-15 21:32] LABS: CALCIUM, TOTAL 8.3 mg/dL (8.8-10.5); CREATININE 13.99 mg/dL (0.60-1.30); POTASSIUM 5.2 mmol/L (3.5-5.1)
[2020-02-15 21:50] VITALS: BP 174/96
== END 2020-02-15 22:00 | disposition home or self-care (01) ==
LOC: EMS 19:17
DX: N18.6 End stage renal disease (principal); R05 Cough; R06.02 Shortness of breath; Z20.828 Contact with and (suspected) exposure to other viral communicable diseases; Z99.2 Dependence on renal dialysis; Z88.0 Allergy status to penicillin; Z91.041 Radiographic dye allergy status; Z86.73 Personal history of transient ischemic attack (TIA), and cerebral infarction without residual deficits
CPT/HCPCS: 36415; 71045; 80048; 85025; 99284; U0003

== ENCOUNTER 2020-06-01 02:12 | Emergency (ER) | payer MEDICARE, MEDICAID ==
[~2020-06-01] VITALS: Ht 157.5 cm; Wt 48.2 kg
[~2020-06-01 02:12] MED LIST changes: -AMLO-257 PO; -DIPH25TA20 PO; -LIDO700A15 TP; -LORA-999 PO
[2020-06-01 02:42] LABS: BASOPHILS % (AUTO) 1.5 % (0.0-2.0); EOSINOPHILS % (AUTO) 5.3 % (1.0-6.0); HEMATOCRIT 33.6 % (36-46); HEMOGLOBIN 10.7 g/dL (12.0-16.0); LYMPHOCYTES # (AUTO) 2.5 K/uL (1.0-4.8); LYMPHOCYTES % (AUTO) 34.3 % (22.0-44.0); MEAN CORPUSCULAR HEMOGLOBIN 29.3 pg (26.0-34.0); MEAN CORPUSCULAR HGB CONC 31.8 G/dL (31.0-37.0); MEAN CORPUSCULAR VOLUME 92 fL (80-100); MONOCYTES # (AUTO) 0.7 K/uL (0.1-1.0); NEUTROPHILS # (AUTO) 3.6 K/uL (1.8-7.7); NEUTROPHILS % (AUTO) 48.9 % (40.0-70.0); PLATELET COUNT (AUTO) 251 K/uL (150-450); RED BLOOD CELL COUNT(AUTO) 3.64 MIL/uL (4.00-5.20); RED CELL DISTRIBUTION WIDTH 18.9 % (11.5-14.5)
[2020-06-01 02:44] LABS: CALCIUM, TOTAL 10.1 mg/dL (8.8-10.5); CREATININE 7.64 mg/dL (0.60-1.30); POTASSIUM 5.2 mmol/L (3.5-5.1)
[2020-06-01] MEDS ORDERED: ACETAMINOPHEN 500 MG TABLET PO ONE (02:45)
[2020-06-01] MEDS ORDERED: LIDOCAINE 5% TRANSDERMAL PATCH TD ONE (02:45)
[2020-06-01 02:50] LABS: ALBUMIN 4.2 g/dL (3.4-5.0); BILIRUBIN,TOTAL 0.5 mg/dL (0.1-1.0); MAGNESIUM 2.3 mg/dL (1.80-2.40); TOTAL PROTEIN, SERUM 8.8 g/dL (6.4-8.2)
[2020-06-01 03:31] VITALS: BP 132/79
== END 2020-06-01 04:00 | disposition home or self-care (01) ==
LOC: EMS 02:22
DX: S70.02XA Contusion of left hip, initial encounter (principal); E87.5 Hyperkalemia; N18.6 End stage renal disease; R07.89 Other chest pain; Z86.73 Personal history of transient ischemic attack (TIA), and cerebral infarction without residual deficits; Z88.8 Allergy status to other drugs, medicaments and biological substances; Z88.1 Allergy status to other antibiotic agents; Z91.041 Radiographic dye allergy status; W01.0XXA Fall on same level from slipping, tripping and stumbling without subsequent striking against object, initial encounter; Y93.89 Activity, other specified; Y92.89 Other specified places as the place of occurrence of the external cause; Y99.8 Other external cause status
CPT/HCPCS: 83735; 93005; 99285; 36415-L1; 36415-TC; 71045-TC

== ENCOUNTER 2020-09-15 23:49 | Emergency (ER) | payer MEDICARE, MEDICAID ==
[~2020-09-15] VITALS: Ht 157.5 cm; Wt 48.2 kg
[2020-09-15 23:58] VITALS: BP 135/75
[2020-09-16 00:31] LABS: HEMATOCRIT 26.4 % (36-46); HEMOGLOBIN 8.2 g/dL (12.0-16.0); MEAN CORPUSCULAR VOLUME 94 fL (80-100); PLATELET COUNT (AUTO) 182 K/uL (150-450); RED BLOOD CELL COUNT(AUTO) 2.82 MIL/uL (4.00-5.20); RED CELL DISTRIBUTION WIDTH 19.4 % (11.5-14.5)
[2020-09-16 00:48] LABS: BAND NEUTROPHILS % (MANUAL) 0 % (0-5)
[2020-09-16 00:49] LABS: ANION GAP 13 mmol/L (8-16); CALCIUM, TOTAL 8.4 mg/dL (8.8-10.5); CARBON DIOXIDE 28 mmol/L (22-29); CHLORIDE 97 mmol/L (98-107); CREATININE 7.55 mg/dL (0.60-1.30); GLOMERULAR FILTR. RATE CALC 8 mL/min (>60); GLUCOSE,RANDOM 124 mg/dL (70-110); POTASSIUM 4.2 mmol/L (3.5-5.1); SODIUM SERUM 138 mmol/L (136-145); UREA NITROGEN, BLOOD 45 mg/dL (7-18)
[2020-09-16 00:50] LABS: ALANINE AMINOTRANSFERASE 29 U/L (12-78); ALBUMIN 3.5 g/dL (3.4-5.0); ALKALINE PHOSPHATASE 134 U/L (46-116); ASPARTATE AMINOTRANSFERASE 17 U/L (15-37); BILIRUBIN,TOTAL 0.4 mg/dL (0.1-1.0); HCG,QUANTITATIVE < 1 mIU/mL (0-6); LIPASE 65 U/L (73-393); TOTAL PROTEIN, SERUM 7.6 g/dL (6.4-8.2)
[2020-09-16 00:52] LABS: B-TYPE NATRIURETIC PEPTIDE 1970 pg/mL (0-100)
[2020-09-16 00:54] LABS: EOSINOPHILS % (MANUAL) 15 % (1-6); LYMPHOCYTES % (MANUAL) 22 % (22-44); MONOCYTES % (MANUAL) 6 % (2-9); SEGMENTED NEUTROPHILS % 57 % (40-70)
[2020-09-16] MEDS ORDERED: ACETAMINOPHEN/CODEINE 300-30 MG TABLET PO ONE (01:00)
== END 2020-09-16 01:55 | disposition home or self-care (01) ==
LOC: EMS 23:50
DX: M32.9 Systemic lupus erythematosus, unspecified (principal); N18.6 End stage renal disease; Z99.2 Dependence on renal dialysis; Z79.899 Other long term (current) drug therapy; Z88.0 Allergy status to penicillin
CPT/HCPCS: 36415; 71045; 80053; 82962; 83690; 83880; 84484; 84702; 85025; 93005; 99285; G0480

== ENCOUNTER 2021-03-10 22:22 | Emergency (ER) | payer MEDICARE, MEDICAID ==
[~2021-03-10 22:22] MED LIST changes: +HYDR200T38 PO; -HYDR200T4 PO
== END 2021-03-10 23:30 | disposition left against medical advice (07) ==
LOC: EMS 22:23
DX: E16.2 Hypoglycemia, unspecified (principal); Z53.21 Procedure and treatment not carried out due to patient leaving prior to being seen by health care provider

== ENCOUNTER 2022-06-26 09:26 | Inpatient (IN) | payer MEDICARE, OTHER ==
[2022-06-26] VITALS (9 sets, daily range): BP systolic 133–208; BP diastolic 88–126
[~2022-06-26] VITALS: Ht 157.5 cm; Wt 70.1 kg
[2022-06-26] MEDS ORDERED: APIX2.5T PO (10:34)
[2022-06-26] MEDS ORDERED: APIX5TAB PO (10:36)
[2022-06-26 11:43] LABS: BASOPHILS % (AUTO) 0.8 % (0.0-2.0); EOSINOPHILS % (AUTO) 1.7 % (1.0-6.0); HEMATOCRIT 27.3 % (36-46); HEMOGLOBIN 8.3 g/dL (12.0-16.0); LYMPHOCYTES # (AUTO) 0.8 K/uL (1.0-4.8); MEAN CORPUSCULAR HEMOGLOBIN 24.5 pg (26.0-34.0); MEAN CORPUSCULAR HGB CONC 30.3 G/dL (31.0-37.0); MEAN CORPUSCULAR VOLUME 81 fL (80-100); MONOCYTES # (AUTO) 0.7 K/uL (0.1-1.0); MONOCYTES % (AUTO) 10.5 % (2.0-9.0); NEUTROPHILS # (AUTO) 4.8 K/uL (1.8-7.7); PLATELET COUNT (AUTO) 192 K/uL (150-450); RED BLOOD CELL COUNT(AUTO) 3.38 MIL/uL (4.00-5.20); RED CELL DISTRIBUTION WIDTH 19.9 % (11.5-14.5)
[2022-06-26] MEDS ORDERED: ONDANSETRON HCL 4 MG/2 ML VIAL IVP ONE (11:45)
[2022-06-26] MEDS ORDERED: CITA-144 PO (11:54)
[2022-06-26] MEDS ORDERED: HYDR100T28 PO (11:54)
[2022-06-26] MEDS ORDERED: HYDR-3831 PO (11:54)
[2022-06-26] MEDS ORDERED: NIFE90TA45 PO (11:54)
[2022-06-26] MEDS ORDERED: MORPHINE SULFATE 4 MG/ML SYRINGE IVP ONE (12:00)
[2022-06-26 12:04] LABS: INFLUENZA TYPE A NEGATIVE FOR TYPE A (NEGATIVE); INFLUENZA TYPE B NEGATIVE FOR TYPE B (NEGATIVE)
[2022-06-26 12:06] LABS: B-TYPE NATRIURETIC PEPTIDE 3880 pg/mL (0-100)
[2022-06-26 12:20] LABS: ALANINE AMINOTRANSFERASE 37 U/L (12-78); ALBUMIN 3.3 g/dL (3.4-5.0); ALKALINE PHOSPHATASE 239 U/L (46-116); ANION GAP 18 mmol/L (8-16); ASPARTATE AMINOTRANSFERASE 78 U/L (15-37); BILIRUBIN,TOTAL 0.5 mg/dL (0.1-1.0); CALCIUM, TOTAL 8.9 mg/dL (8.8-10.5); CARBON DIOXIDE 20 mmol/L (22-29); CHLORIDE 96 mmol/L (98-107); CREATINE KINASE, TOTAL ONLY 127 U/L (26-192); CREATININE 13.08 mg/dL (0.60-1.30); GLOMERULAR FILTR. RATE CALC 4 mL/min (>60); GLUCOSE,RANDOM 69 mg/dL (70-110); HCG,QUANTITATIVE < 1 mIU/mL (0-6); SODIUM SERUM 134 mmol/L (136-145); TOTAL PROTEIN, SERUM 7.1 g/dL (6.4-8.2)
[2022-06-26 12:23] LABS: UREA NITROGEN, BLOOD 120 mg/dL (7-18)
[2022-06-26] MEDS ORDERED: ALBUTEROL SULFATE 2.5 MG/0.5 ML NEB SOLUTION NEB ONE (12:45)
[2022-06-26] MEDS ORDERED: CALCIUM GLUCONATE 1,000 MG in DEXTROSE 5%-WATER 50 ML IV ONE (12:45)
[2022-06-26] MEDS ORDERED: DEXTROSE 50%-WATER 25 GM/50 ML SYRINGE IVP ONE (12:45)
[2022-06-26] MEDS ORDERED: INSULIN REGULAR, HUMAN 100 UNITS/ML IVP ONE (12:45)
[2022-06-26] MEDS ORDERED: SODIUM BICARBONATE [ADULT] 8.4% 50 MEQ/50 ML SYRINGE IVP ONE (12:45)
[2022-06-26] MEDS ORDERED: FUROSEMIDE 40 MG/4 ML VIAL IVP ONE (12:45)
[2022-06-26] MEDS ORDERED: ACETAMINOPHEN 325 MG TABLET PO PRN ×2 (13:30→13:45)
[2022-06-26] MEDS ORDERED: 0.9% SODIUM CHLORIDE 10 ML SYRINGE IVP PRN (13:30)
[2022-06-26] MEDS ORDERED: ONDANSETRON HCL 4 MG/2 ML VIAL IVP PRN (13:30)
[2022-06-26] MEDS ORDERED: MAGNESIUM HYDROXIDE SUSPENSION 30 ML UDCUP PO PRN (13:45)
[2022-06-26] MEDS ORDERED: BISACODYL 10 MG RECTAL RECTAL SUPPOSITORY PR PRN (13:45)
[2022-06-26] MEDS ORDERED: ZOLPIDEM TARTRATE 5 MG TABLET PO PRN (13:45)
[2022-06-26] MEDS ORDERED: SODIUM CHLORIDE 0.9% 2,000 ML ONE (14:28)
[2022-06-26] MEDS: FOLIC ACID/VIT B COMPLEX AND C TABLET PO SCH (16:02)
[2022-06-26] MEDS: MORPHINE SULFATE 2 MG/ML SYRINGE IVP PRN ×2 (16:03→20:43)
[2022-06-26] MEDS: HydrALAZINE HCL 50 MG TABLET PO SCH ×2 (17:44→22:37)
[2022-06-26] MEDS: SEVELAMER CARBONATE 800 MG TABLET PO SCH (17:46)
[2022-06-26 20:51] LABS: CALCIUM, TOTAL 8.8 mg/dL (8.8-10.5); CREATININE 11.19 mg/dL (0.60-1.30); POTASSIUM 5.6 mmol/L (3.5-5.1)
[2022-06-26] MEDS: ONDANSETRON HCL 4 MG/2 ML VIAL IVP PRN (21:54)
[2022-06-26] MEDS: DOCUSATE SODIUM 100 MG CAPSULE PO SCH (21:54)
[2022-06-26] MEDS: APIXABAN 2.5 MG TABLET PO SCH (21:54)
[2022-06-26] MEDS: CITALOPRAM HYDROBROMIDE 20 MG TABLET PO SCH (22:36)
[2022-06-26] MEDS: HydrOXYzine HCL 10 MG TABLET PO SCH (22:37)
[2022-06-27 00:08] VITALS: BP 108/50
[2022-06-27] MEDS: MORPHINE SULFATE 2 MG/ML SYRINGE IVP PRN ×5 (00:46→20:38)
[2022-06-27 04:07] VITALS: BP 135/87
[2022-06-27] MEDS: LEVOTHYROXINE SODIUM 100 MCG TABLET PO SCH (06:29)
[2022-06-27] MEDS: ONDANSETRON HCL 4 MG/2 ML VIAL IVP PRN ×2 (06:29→21:53)
[2022-06-27 06:40] LABS: BASOPHILS % (AUTO) 0.9 % (0.0-2.0); HEMATOCRIT 24.1 % (36-46); HEMOGLOBIN 7.6 g/dL (12.0-16.0); LYMPHOCYTES # (AUTO) 1.2 K/uL (1.0-4.8); MEAN CORPUSCULAR HEMOGLOBIN 25.2 pg (26.0-34.0); MEAN CORPUSCULAR HGB CONC 31.5 G/dL (31.0-37.0); MEAN CORPUSCULAR VOLUME 80 fL (80-100); MONOCYTES # (AUTO) 0.6 K/uL (0.1-1.0); MONOCYTES % (AUTO) 11.8 % (2.0-9.0); NEUTROPHILS # (AUTO) 2.8 K/uL (1.8-7.7); NEUTROPHILS % (AUTO) 56.3 % (40.0-70.0); PLATELET COUNT (AUTO) 157 K/uL (150-450); RED BLOOD CELL COUNT(AUTO) 3.01 MIL/uL (4.00-5.20); RED CELL DISTRIBUTION WIDTH 19.6 % (11.5-14.5)
[2022-06-27 07:13] LABS: ALBUMIN 3.2 g/dL (3.4-5.0); BILIRUBIN,TOTAL 0.4 mg/dL (0.1-1.0); CALCIUM, TOTAL 8.6 mg/dL (8.8-10.5); CREATININE 11.61 mg/dL (0.60-1.30); PHOSPHORUS 8.6 mg/dL (2.5-4.9); POTASSIUM 5.9 mmol/L (3.5-5.1); TOTAL PROTEIN, SERUM 7.1 g/dL (6.4-8.2)
[2022-06-27 07:40] VITALS: BP 159/90
[2022-06-27] MEDS: HydrOXYzine HCL 10 MG TABLET PO SCH ×2 (07:57→20:28)
[2022-06-27] MEDS: CITALOPRAM HYDROBROMIDE 20 MG TABLET PO SCH ×2 (07:58→20:28)
[2022-06-27] MEDS: SEVELAMER CARBONATE 800 MG TABLET PO SCH ×3 (07:58→17:49)
[2022-06-27] MEDS: HydrALAZINE HCL 50 MG TABLET PO SCH ×4 (07:58→20:28)
[2022-06-27] MEDS: FOLIC ACID/VIT B COMPLEX AND C TABLET PO SCH (07:58)
[2022-06-27] MEDS: HYDROXYCHLOROQUINE SULFATE 200 MG TABLET PO SCH (07:58)
[2022-06-27] MEDS: PANTOPRAZOLE SODIUM 40 MG DR TABLET PO SCH (07:58)
[2022-06-27] MEDS: NIFEdipine 90 MG ER TABLET PO SCH (07:59)
[2022-06-27] MEDS: APIXABAN 2.5 MG TABLET PO SCH ×2 (07:59→20:28)
[2022-06-27] MEDS: DOCUSATE SODIUM 100 MG CAPSULE PO SCH ×2 (08:10→20:28)
[2022-06-27] MEDS ORDERED: AmLODIPine BESYLATE 10 MG TABLET PO SCH (09:00)
[2022-06-27] MEDS ORDERED: PANTOPRAZOLE SODIUM 40 MG DR TABLET PO SCH (09:00)
[2022-06-27 11:22] VITALS: BP 110/59
[2022-06-27] MEDS: DiphenhydrAMINE HCL 25 MG CAPSULE PO PRN (13:16)
[2022-06-27 15:58] VITALS: BP 115/45
[2022-06-27 20:00] VITALS: BP 105/57
[2022-06-28] VITALS (14 sets, daily range): BP systolic 110–184; BP diastolic 59–156
[2022-06-28] MEDS: MORPHINE SULFATE 2 MG/ML SYRINGE IVP PRN ×3 (04:18→16:54)
[2022-06-28 04:50] LABS: BASOPHILS % (AUTO) 1.6 % (0.0-2.0); EOSINOPHILS % (AUTO) 6.4 % (1.0-6.0); HEMATOCRIT 25.7 % (36-46); LYMPHOCYTES # (AUTO) 1.1 K/uL (1.0-4.8); LYMPHOCYTES % (AUTO) 18.4 % (22.0-44.0); MEAN CORPUSCULAR HGB CONC 31.1 G/dL (31.0-37.0); MEAN CORPUSCULAR VOLUME 81 fL (80-100); MONOCYTES # (AUTO) 0.7 K/uL (0.1-1.0); MONOCYTES % (AUTO) 12.1 % (2.0-9.0); NEUTROPHILS # (AUTO) 3.5 K/uL (1.8-7.7); NEUTROPHILS % (AUTO) 61.5 % (40.0-70.0); PLATELET COUNT (AUTO) 195 K/uL (150-450); RED BLOOD CELL COUNT(AUTO) 3.19 MIL/uL (4.00-5.20); RED CELL DISTRIBUTION WIDTH 19.5 % (11.5-14.5)
[2022-06-28 05:07] LABS: CALCIUM, TOTAL 9.2 mg/dL (8.8-10.5); CREATININE 13.45 mg/dL (0.60-1.30)
[2022-06-28 05:09] LABS: POTASSIUM 6.6 mmol/L (3.5-5.1)
[2022-06-28] MEDS: LEVOTHYROXINE SODIUM 100 MCG TABLET PO SCH (06:20)
[2022-06-28] MEDS: SEVELAMER CARBONATE 800 MG TABLET PO SCH ×3 (08:31→16:55)
[2022-06-28] MEDS: FOLIC ACID/VIT B COMPLEX AND C TABLET PO SCH (08:31)
[2022-06-28] MEDS: CITALOPRAM HYDROBROMIDE 20 MG TABLET PO SCH ×2 (08:32→21:17)
[2022-06-28] MEDS: PANTOPRAZOLE SODIUM 40 MG DR TABLET PO SCH (08:32)
[2022-06-28] MEDS: APIXABAN 2.5 MG TABLET PO SCH ×2 (08:32→21:10)
[2022-06-28] MEDS: DOCUSATE SODIUM 100 MG CAPSULE PO SCH ×2 (08:32→21:10)
[2022-06-28] MEDS: HYDROXYCHLOROQUINE SULFATE 200 MG TABLET PO SCH (08:33)
[2022-06-28] MEDS: HydrOXYzine HCL 10 MG TABLET PO SCH ×2 (08:34→21:40)
[2022-06-28] MEDS: HYDROCODONE/ACETAMINOPHEN 5-325 MG TABLET PO PRN ×2 (08:44→21:17)
[2022-06-28] MEDS: HydrALAZINE HCL 50 MG TABLET PO SCH ×4 (09:00→21:16)
[2022-06-28] MEDS ORDERED: INSULIN REGULAR, HUMAN 100 UNITS/ML IVP ONE (11:00)
[2022-06-28] MEDS ORDERED: DEXTROSE 50%-WATER 25 GM/50 ML SYRINGE IVP ONE (11:00)
[2022-06-28] MEDS ORDERED: SODIUM ZIRCONIUM CYCLOSILICATE 5 GM POWDER PACKET PO ONE (11:00)
[2022-06-28] MEDS ORDERED: DiphenhydrAMINE HCL 50 MG/ML VIAL IVP ONE (11:00)
[2022-06-28] MEDS ORDERED: HEPARIN SODIUM,PORCINE 1,000 UNITS/ML VIAL IVCATH ONE ×2 (12:45)
[2022-06-28] MEDS: NIFEdipine 90 MG ER TABLET PO SCH (16:55)
[2022-06-28] MEDS ORDERED: HEPARIN SODIUM,PORCINE 1,000 UNITS/ML VIAL IVP ONE (17:07)
[2022-06-29] VITALS (12 sets, daily range): BP systolic 119–206; BP diastolic 69–128
[2022-06-29] MEDS: MORPHINE SULFATE 2 MG/ML SYRINGE IVP PRN ×5 (00:23→21:10)
[2022-06-29] MEDS: LEVOTHYROXINE SODIUM 100 MCG TABLET PO SCH (06:12)
[2022-06-29] MEDS: ONDANSETRON HCL 4 MG/2 ML VIAL IVP PRN (06:14)
[2022-06-29] MEDS: DiphenhydrAMINE HCL 25 MG CAPSULE PO PRN ×2 (06:28→17:20)
[2022-06-29 06:55] LABS: BASOPHILS % (AUTO) 0.9 % (0.0-2.0); EOSINOPHILS % (AUTO) 7.3 % (1.0-6.0); HEMATOCRIT 24.7 % (36-46); HEMOGLOBIN 7.6 g/dL (12.0-16.0); LYMPHOCYTES # (AUTO) 0.9 K/uL (1.0-4.8); LYMPHOCYTES % (AUTO) 20.6 % (22.0-44.0); MEAN CORPUSCULAR HEMOGLOBIN 25.1 pg (26.0-34.0); MEAN CORPUSCULAR HGB CONC 30.9 G/dL (31.0-37.0); MEAN CORPUSCULAR VOLUME 81 fL (80-100); MONOCYTES # (AUTO) 0.7 K/uL (0.1-1.0); NEUTROPHILS # (AUTO) 2.5 K/uL (1.8-7.7); NEUTROPHILS % (AUTO) 56.2 % (40.0-70.0); PLATELET COUNT (AUTO) 165 K/uL (150-450); RED BLOOD CELL COUNT(AUTO) 3.05 MIL/uL (4.00-5.20); RED CELL DISTRIBUTION WIDTH 19.5 % (11.5-14.5)
[2022-06-29 07:15] LABS: CREATININE 8.16 mg/dL (0.60-1.30); POTASSIUM 5.3 mmol/L (3.5-5.1)
[2022-06-29] MEDS: FOLIC ACID/VIT B COMPLEX AND C TABLET PO SCH (08:59)
[2022-06-29] MEDS: PANTOPRAZOLE SODIUM 40 MG DR TABLET PO SCH (09:00)
[2022-06-29] MEDS: APIXABAN 2.5 MG TABLET PO SCH ×2 (09:00→21:08)
[2022-06-29] MEDS: HydrALAZINE HCL 50 MG TABLET PO SCH ×4 (09:00→21:08)
[2022-06-29] MEDS: NIFEdipine 90 MG ER TABLET PO SCH (09:00)
[2022-06-29] MEDS: SEVELAMER CARBONATE 800 MG TABLET PO SCH ×3 (09:00→18:00)
[2022-06-29] MEDS ORDERED: EPOETIN ALFA 10,000 UNITS/ML VIAL SQ SCH (09:00)
[2022-06-29] MEDS: DOCUSATE SODIUM 100 MG CAPSULE PO SCH ×2 (09:00→21:08)
[2022-06-29] MEDS: HydrOXYzine HCL 10 MG TABLET PO SCH ×2 (09:01→21:08)
[2022-06-29] MEDS: CITALOPRAM HYDROBROMIDE 20 MG TABLET PO SCH ×2 (09:01→21:08)
[2022-06-29] MEDS: HYDROXYCHLOROQUINE SULFATE 200 MG TABLET PO SCH (09:03)
[2022-06-29] MEDS: HYDROCODONE/ACETAMINOPHEN 5-325 MG TABLET PO PRN (09:08)
[2022-06-29] MEDS ORDERED: SODIUM CHLORIDE 0.9% 2,000 ML ONE (17:04)
[2022-06-29] MEDS ORDERED: HEPARIN SODIUM,PORCINE 1,000 UNITS/ML VIAL IVP ONE (17:14)
[2022-06-30 01:44] VITALS: BP 102/75
[2022-06-30] MEDS: MORPHINE SULFATE 2 MG/ML SYRINGE IVP PRN ×3 (01:45→14:23)
[2022-06-30] MEDS: DiphenhydrAMINE HCL 25 MG CAPSULE PO PRN (01:45)
[2022-06-30 05:36] VITALS: BP 189/100
[2022-06-30] MEDS: LEVOTHYROXINE SODIUM 100 MCG TABLET PO SCH (06:19)
[2022-06-30 07:06] VITALS: BP 151/83
[2022-06-30] MEDS: FOLIC ACID/VIT B COMPLEX AND C TABLET PO SCH (07:54)
[2022-06-30] MEDS: PANTOPRAZOLE SODIUM 40 MG DR TABLET PO SCH (07:54)
[2022-06-30] MEDS: DOCUSATE SODIUM 100 MG CAPSULE PO SCH (07:54)
[2022-06-30] MEDS: SEVELAMER CARBONATE 800 MG TABLET PO SCH ×2 (07:54→12:08)
[2022-06-30] MEDS: HYDROXYCHLOROQUINE SULFATE 200 MG TABLET PO SCH (07:55)
[2022-06-30] MEDS: HydrOXYzine HCL 10 MG TABLET PO SCH (07:55)
[2022-06-30] MEDS: NIFEdipine 90 MG ER TABLET PO SCH (07:56)
[2022-06-30] MEDS: CITALOPRAM HYDROBROMIDE 20 MG TABLET PO SCH (07:56)
[2022-06-30] MEDS: HydrALAZINE HCL 50 MG TABLET PO SCH ×3 (07:57→16:20)
[2022-06-30] MEDS: APIXABAN 2.5 MG TABLET PO SCH (09:00)
[2022-06-30 11:29] VITALS: BP 149/58
[2022-06-30] MEDS ORDERED: SODI5POW3 PO (12:47)
[2022-06-30] MEDS ORDERED: FOLI0.8T2 PO (12:47)
[2022-06-30 15:45] VITALS: BP 142/75
== END 2022-06-30 17:15 | disposition home or self-care (01) | DRG 291 ==
LOC: EMS 09:26 → 5S 14:36
PROVIDERS: ADMIT Internal Medicine; ATTEND Internal Medicine
PROC: 5A1D70Z Performance of Urinary Filtration, Intermittent, Less than 6 Hours Per Day (ICD-10-PCS; principal; 2022-06-26)
PROC: 5A1D70Z Performance of Urinary Filtration, Intermittent, Less than 6 Hours Per Day (ICD-10-PCS; 2022-06-28)
PROC: 5A1D70Z Performance of Urinary Filtration, Intermittent, Less than 6 Hours Per Day (ICD-10-PCS; 2022-06-29)
DX: I13.2 Hypertensive heart and chronic kidney disease with heart failure and with stage 5 chronic kidney disease, or end stage renal disease (principal); I50.31 Acute diastolic (congestive) heart failure; N18.6 End stage renal disease; I16.1 Hypertensive emergency; E87.1 Hypo-osmolality and hyponatremia; N17.9 Acute kidney failure, unspecified; R55 Syncope and collapse; G62.9 Polyneuropathy, unspecified; E87.5 Hyperkalemia; D63.1 Anemia in chronic kidney disease; E03.9 Hypothyroidism, unspecified; E83.39 Other disorders of phosphorus metabolism; I44.0 Atrioventricular block, first degree; M32.9 Systemic lupus erythematosus, unspecified; Z79.01 Long term (current) use of anticoagulants; Z79.899 Other long term (current) drug therapy; Z99.2 Dependence on renal dialysis; Z86.73 Personal history of transient ischemic attack (TIA), and cerebral infarction without residual deficits; Z88.1 Allergy status to other antibiotic agents; Z88.8 Allergy status to other drugs, medicaments and biological substances
CPT/HCPCS: 71045; 80048; 80053; 82550; 83880; 84100; 84132; 84484; 84702; 85025; 85379; 87040; 87081; 87340; 87804; 90935; 93005; 94640; 99285; G0378; J0610; J0885; J1200; J1644; J1815; J1940; J2270; J2405; J3490; J7030; J7060; Q9967; 36415-L1; 36415-TC; J7613